=== PATIENT | female | born 1980 ===

== ENCOUNTER → 2020-06-15 | Outpatient (CLI) | payer OTHER ==
--- NOTE | 2020-06-15 12:46 | Diagnostic Imaging Report ---
Indication: Routine screening. No prior mammograms are available for comparison. This a baseline study. 2-D and 3-D bilateral screening mammography was performed with CAD. Both breasts are heterogeneously dense, limiting the sensitivity of mammography. No mass or malignant appearing microcalcifications are seen. Axillae are unremarkable. IMPRESSION: BI-RADS Category 1 No mammographic features suspicious for malignancy are identified. ACR BI-RADS Category 1: Negative. Result letter will be mailed to the patient. Note: At least 10% of breast cancer is not imaged by mammography. Dictated by: Dictated on workstation # [id number]
== END ==
LOC: RAD 10:45
PROVIDERS: ATTEND Nurse Practitioner
DX: Z12.31 Encounter for screening mammogram for malignant neoplasm of breast (principal)
CPT/HCPCS: 77063; 77067

== ENCOUNTER 2020-12-12 10:40 | Emergency (ER) | payer SELFPAY ==
[~2020-12-12] VITALS: Ht 170 cm; Wt 65.7 kg
[2020-12-12 11:33] LABS: BASOPHILS % (AUTO) 0 % (0-10); EOSINOPHILS % (AUTO) 0 % (0-10); HEMATOCRIT 22 % (35-52); LYMPHOCYTES # (AUTO) 1.2 10^3/uL (1.0-4.0); LYMPHOCYTES % (AUTO) 11 % (12-44); MEAN CORPUSCULAR HEMOGLOBIN 30 pg (25-34); MEAN CORPUSCULAR HGB CONC 32 g/dL (32-36); MEAN CORPUSCULAR VOLUME 94 fL (80-99); MEAN PLATELET VOLUME 10.3 fL (9.0-12.2); MONOCYTES # (AUTO) 0.4 10^3/uL (0.0-1.0); MONOCYTES % (AUTO) 4 % (0-12); NEUTROPHILS # (AUTO) 9.4 10^3/uL (1.8-7.8); NEUTROPHILS % (AUTO) 84 % (42-75); PLATELET COUNT 221 10^3/uL (130-400); WHITE BLOOD COUNT 11.2 10^3/uL (4.3-11.0)
[2020-12-12 11:37] LABS: HEMOGLOBIN 6.9 g/dL (11.5-16.0)
[2020-12-12 11:41] LABS: ALBUMIN 3.8 GM/DL (3.2-4.5); CHLORIDE 108 MMOL/L (98-107); POTASSIUM 3.5 MMOL/L (3.6-5.0); SODIUM 140 MMOL/L (135-145)
[2020-12-12 11:42] LABS: CALCIUM 8.2 MG/DL (8.5-10.1)
[2020-12-12 11:43] LABS: GLUCOSE 127 MG/DL (70-105); TOTAL PROTEIN 6.5 GM/DL (6.4-8.2)
[2020-12-12 11:45] LABS: BILIRUBIN,TOTAL 0.4 MG/DL (0.1-1.0); CARBON DIOXIDE 24 MMOL/L (21-32)
[2020-12-12 11:47] LABS: ALKALINE PHOSPHATASE 60 U/L (40-136); CREATININE SERUM 0.73 MG/DL (0.60-1.30); GFR ESTIMATED > 60
[2020-12-12 11:48] LABS: BUN/CREATININE RATIO 19
[2020-12-12 11:50] LABS: ALANINE AMINOTRANSFERASE 19 U/L (0-55)
[2020-12-12] MEDS ORDERED: NS IV 500 ML 500 ML IV SCH (13:15)
[2020-12-12 13:52] VITALS: BP 113/70
[2020-12-12 14:00] VITALS: BP 114/73
[2020-12-12 14:05] VITALS: BP 114/71
--- NOTE | 2020-12-12 14:55 | ED General ---
General Chief Complaint: General Problems/Pain Stated Complaint: JACKSON,ABD NORMAL LABS Nursing Triage Note: PT REFERRED TO ED FROM LOCAL CLINIC SEEN FOR DIZZYNESS. CLINIC REFERRED PT TO ED FOR LOW HEMOGLOBIN LEVELS. PT REPORTS DARK STOOLS AND HEADACHE FOR THE LAST THREE DAYS. Source of Information: Patient, Business Administration Professor Exam Limitations: Language Barrier History of Present Illness Date Seen by Provider: Dec 12, 2020 Time Seen by Provider: 11:00 Initial Comments Patient is a 40-year-old female who presents to the emergency room at the direction of [facility] with a chief complaint of anemia. Patient has been dizzy, having some nausea and a mild to moderate headache over the last 2 to 3 days. Patient examination is limited by language barrier, site interpreter line is used to facilitate history taking. Patient states that she has had some black stools over the last 3 or 4 days. She has had mild headache and fatigue. She is nauseated. She denies 6 discrete abdominal pain. Last menstrual cycle was 24 November. Patient denies diarrhea, urinary complaints. No recent fevers, chills, cough or congestion. No Covid complaints. She has taken some aspirin for her headache yesterday. Just 1 dose. She denies any other zmbl-amw-fgzkecx medications. She is not on control. All other review of systems reviewed and negative except as stated above. Timing/Duration: 2-3 Days Severity: Moderate Associated Systoms: Headaches, Nausea/Vomiting Allergies and Home Medications Allergies Coded Allergies: No Known Drug Allergies (Unverified , 12/12/20) Home Medications Ondansetron 4 Mg Tab.rapdis, 4 MG PO Q8H PRN for nausea Prescribed by: KRAIG LEIVA on 12/12/20 1542 Patient Home Medication List Home Medication List Reviewed: Yes Review of Systems Review of Systems Constitutional: see HPI, malaise EENTM: no symptoms reported Respiratory: no symptoms reported Cardiovascular: no symptoms reported Gastrointestinal: nausea Genitourinary: no symptoms reported Skin: no symptoms reported Psychiatric/Neurological: Headache, Other (dizziness) All Other Systems Reviewed Negative Unless Noted: Yes Past Vwcxopx-Nmtqgw-Bazvja Hx Patient Social History Tobacco Use?: No Substance use?: No Alcohol Use?: No Past Medical History Last Menstrual Period: Nov 24, 2020 Physical Exam Vital Signs Vital Signs - First Documented 12/12/20 11:04 Temp 36.4 Pulse 85 Resp 18 B/P (MAP) 130/82 (98) Pulse Ox 100 O2 Delivery Room Air Capillary Refill : Less Than 3 Seconds Height, Weight, BMI Height: '" Weight: lbs. oz. kg; 22.00 BMI Method: General Appearance: No Apparent Distress, WD/WN Eyes: Bilateral Eye Normal Inspection, Bilateral Eye Conjunctivae Pale HEENT: PERRL/EOMI Neck: Full Range of Motion, Supple Respiratory: Lungs Clear, Normal Breath Sounds, No Accessory Muscle Use, No Respiratory Distress Cardiovascular: Regular Rate, Rhythm Gastrointestinal: Non Tender, Soft Rectal: Normal Exam, Normal Rectal Tone, Heme Negative Stool Extremity: Normal Capillary Refill, Normal Inspection, Normal Range of Motion, Non Tender, No Calf Tenderness Neurologic/Psychiatric: Alert, Oriented x3, No Motor/Sensory Deficits, Normal Mood/Affect, ad operations specialist II-XII Norm as Tested Skin: Warm/Dry, Pallor Progress/Results/Core Measures Suspected Sepsis SIRS Temperature: Pulse: 78 Respiratory Rate: 19 Laboratory Tests 12/12/20 11:25: White Blood Count 11.2H Blood Pressure 114 /71 Mean: 85 Laboratory Tests 12/12/20 11:25: Creatinine 0.73, Platelet Count 221, Total Bilirubin 0.4 Results/Orders Lab Results Laboratory Tests Test 12/12/20 11:25 12/13/20 08:38 Range/Units White Blood Count 11.2 H 4.3-11.0 10^3/uL Red Blood Count 2.30 L 3.80-5.11 10^6/uL Hemoglobin 6.9 *L 11.5-16.0 g/dL Hematocrit 22 L 35-52 % Mean Corpuscular Volume 94 80-99 fL Mean Corpuscular Hemoglobin 30 25-34 pg Mean Corpuscular Hemoglobin Concent 32 32-36 g/dL Red Cell Distribution Width 13.8 10.0-14.5 % Platelet Count 221 130-400 10^3/uL Mean Platelet Volume 10.3 9.0-12.2 fL Immature Granulocyte % (Auto) 1 % Neutrophils (%) (Auto) 84 H 42-75 % Lymphocytes (%) (Auto) 11 L 12-44 % Monocytes (%) (Auto) 4 0-12 % Eosinophils (%) (Auto) 0 0-10 % Basophils (%) (Auto) 0 0-10 % Neutrophils # (Auto) 9.4 H 1.8-7.8 10^3/uL Lymphocytes # (Auto) 1.2 1.0-4.0 10^3/uL Monocytes # (Auto) 0.4 0.0-1.0 10^3/uL Eosinophils # (Auto) 0.0 0.0-0.3 10^3/uL Basophils # (Auto) 0.0 0.0-0.1 10^3/uL Immature Granulocyte # (Auto) 0.1 0.0-0.1 10^3/uL Sodium Level 140 135-145 MMOL/L Potassium Level 3.5 L 3.6-5.0 MMOL/L Chloride Level 108 H 98-107 MMOL/L Carbon Dioxide Level 24 21-32 MMOL/L Anion Gap 8 5-14 MMOL/L Blood Urea Nitrogen 14 7-18 MG/DL Creatinine 0.73 0.60-1.30 MG/DL Estimat Glomerular Filtration Rate > 60 BUN/Creatinine Ratio 19 Glucose Level 127 H 70-105 MG/DL Calcium Level 8.2 L 8.5-10.1 MG/DL Corrected Calcium 8.4 L 8.5-10.1 MG/DL Total Bilirubin 0.4 0.1-1.0 MG/DL Aspartate Amino Transf (AST/SGOT) 18 5-34 U/L Alanine Aminotransferase (ALT/SGPT) 19 0-55 U/L Alkaline Phosphatase 60 40-136 U/L Total Protein 6.5 6.4-8.2 GM/DL Albumin 3.8 3.2-4.5 GM/DL Serum Test, Qualitative NEGATIVE NEGATIVE Lab Scanned Report Transfusion Reaction Form [id number] My Orders Orders - KRAIG LEIVA MD Ed Iv/Invasive Line Start (12/12/20 11:20) Cbc With Automated Diff (12/12/20 11:20) Comprehensive Metabolic Panel (12/12/20 11:20) Hcg,Qualitative Serum (12/12/20 11:20) Type And Screen (12/12/20 11:20) Vital Signs: Special (Order) (12/12/20 13:01) Consent-Obtain Consent For (12/12/20 13:01) Monitor S/S Transfusion Reacti (12/12/20 13:01) Ns Iv 500 Ml (Sodium Chloride 0.9%) (12/12/20 13:15) Red Cells Leukocytes Reduced (7/6/21 13:01) Ketorolac Injection (Toradol Injection) (12/12/20 15:10) Ketorolac Injection (Toradol Injection) (12/12/20 15:30) Medications Given in ED Vital Signs/I&O 12/12/20 12/12/20 12/12/20 12/12/20 11:04 13:52 14:00 14:05 Temp 36.4 36.4 36.3 36.6 Pulse 85 84 85 78 Resp 18 18 20 19 B/P (MAP) 130/82 (98) 113/70 114/73 114/71 Pulse Ox 100 100 98 100 O2 Delivery Room Air Room Air Room Air Room Air 12/12/20 15:51 Temp 36.6 Pulse 85 Resp 19 B/P (MAP) 111/72 (85) Pulse Ox 100 O2 Delivery Room Air 12/13/20 00:00 Intake Total 0 ml Balance 0 ml Capillary Refill : Less Than 3 Seconds Blood Pressure Mean: 85 Departure Impression Primary Impression: Anemia Qualified Codes: D64.9 - Anemia, unspecified Additional Impression: GI bleed Qualified Codes: K92.2 - Gastrointestinal hemorrhage, unspecified Disposition: 01 HOME, SELF-CARE Condition: Stable Departure-Patient Inst. Decision time for Depature: 14:51 Referrals: [facility] [place] Primary Care Physician LITA AGGARWAL MD Patient Instructions: Gastrointestinal Bleeding Add. Discharge Instructions: Call the surgeon's office today to schedule an appointment for this week. The surgeon is Dr Aggarwal. Take an over the counter iron supplement every day. Drink plenty of fluids to stay hydrated. Come back to the Emergency Department for any worsening symptoms or new emergent complaints. Llame al consultorio del cirujano skyla para programar dion devin para esta semana. El cirujano es el Dr. Aggarwal. [place] un suplemento de titus de venta deepa todos los mukherjee. [place] muchos lquidos para mantenerse hidratado. Regrese al Departamento de Emergencias si los sntomas empeoran o si surgen nuevas quejas. Scripts Ondansetron (Ondansetron Odt) 4 Mg Tab.rapdis 4 MG PO Q8H PRN for nausea, #20 TAB Prov: KRAIG LEIVA MD 12/12/20 KRAIG LEIVA MD Dec 12, 2020 14:55
[2020-12-12] MEDS ORDERED: KETOROLAC 30 MG/ML VIAL ONE (15:10)
[2020-12-12] MEDS ORDERED: KETOROLAC 30 MG/ML VIAL IVP ONE (15:30)
[2020-12-12] MEDS ORDERED: ONDA4TAB11 PO (15:42)
[2020-12-12 15:51] VITALS: BP 111/72
== END 2020-12-12 15:54 | disposition home or self-care (01) ==
LOC: EDUNIT# 10:40 → ER 10:42
DX: D64.9 Anemia, unspecified (principal); K92.2 Gastrointestinal hemorrhage, unspecified
CPT/HCPCS: 80053; 84703; 85025; 86850; 86900; 86901; 86920; 99284; P9016; 36415

== ENCOUNTER 2020-12-20 05:32 | Outpatient (RCR) | payer SELFPAY ==
[~2020-12-20] VITALS: Ht 167.6 cm; Wt 67.6 kg
[~2020-12-20 05:32] MED LIST changes: -PANT40TA2 PO
[2020-12-22] MEDS ORDERED: PANT40TA2 PO (11:12)
== END 2020-12-20 12:05 | disposition home or self-care (01) ==
LOC: PREOP 05:32
PROVIDERS: ATTEND Surgery
DX: Z01.818 Encounter for other preprocedural examination (principal)

== ENCOUNTER → 2020-12-20 | Outpatient (CLI) | payer SELFPAY ==
[~2020-12-20] MED LIST: ONDA4TAB11 PO; PANT40TA2 PO
== END ==
LOC: LABNPT 07:33
PROVIDERS: ATTEND Surgery
DX: Z20.822 Contact with and (suspected) exposure to COVID-19 (principal)
CPT/HCPCS: 87635

== ENCOUNTER 2020-12-22 10:44 | Day surgery (SDC) | payer SELFPAY ==
[~2020-12-22] VITALS: Ht 170.2 cm; Wt 67.6 kg
[2020-12-22] MEDS ORDERED: LACTATED RINGERS 1,000 ML IV STA (10:53)
[2020-12-22] MEDS ORDERED: LACTATED RINGERS 1,000 ML IV ONE (11:00)
[2020-12-22] MEDS ORDERED: LIDOCAINE JELLY 2% 6 ML SYRINGE MM PRN (11:00)
[2020-12-22] MEDS ORDERED: HURRICAINE EXT TUBE (BENZOCAINE) XX PRN (11:00)
[2020-12-22 11:10] VITALS: BP 140/82
--- NOTE | 2020-12-22 11:10 | Conscious Sedation/ASA ---
Conscious Sedation Pre-Proced Time 11:00 ASA Score 2 For ASA 3 and 4: Consider anesthesia and medical clearance. Also, for patients with a history of failed moderate sedation consider anesthesia. Airway Lungs Heart ASA score ASA 1: a normal healthy patient ASA 2: a patient with a mild systemic disease (mid diabetes, controlled hypertension, obesity ASA 3: a patient with a severe systemic disease that limits activity (angina, COPD, prior Myocardial infarction) ASA 4: a patient with an incapacitating disease that is a constant threat to life (CHF, renal failure) ASA 5: a moribund patient not expected to survive 24 hrs. (ruptured aneurysm) ASA 6: a declared brain- patient whose organs are being harvested. For emergent operations, add the letter E after the classification Mallampati Classification Grade 2 Sedation Plan Analgesia, Amnesia, Plan communicated to team members, Discussed options with patient/fam, Discussed risks with patient/fam The patient is an appropriate candidate to undergo the planned procedure, sedation, and anesthesia. The patient immediately re-assessed prior to indication. LITA HARRIS MD Dec 22, 2020 11:10
--- NOTE | 2020-12-22 11:11 | Progress Note-Pre Operative ---
Pre-Operative Progress Note H&P Reviewed The H&P was reviewed, patient examined and no changes noted. Date Seen by Provider: Dec 22, 2020 Time Seen by Provider: 11:00 Date H&P Reviewed: Dec 22, 2020 Time H&P Reviewed: 11:00 Pre-Operative Diagnosis: GERD, rectal bleed LITA HARRIS MD Dec 22, 2020 11:11
[2020-12-22] MEDS ORDERED: PANT40TA2 PO (11:12)
--- NOTE | 2020-12-22 11:12 | Discharge Inst-Surgical ---
D/C Lap Instructions-KIDO New, Converted, or Re-Newed RX: RX on Chart Follow Up Appt in 2 weeks Activity as tolerated High Fiber Diet 25g or more per day Avoid Alcohol, Caffeine, Spicy [place] and Acid foods. Drink 64 fluid oz or more of fluids per day. Symptoms to Report: Fever over 101 degree F, Nausea/Vomiting If any problems/questions: Contact your physician or go to Emergency Room LITA HARRIS MD Dec 22, 2020 11:12
[2020-12-22] MEDS ORDERED: ACETAMINOPHEN 325 MG TABLET PO PRN (11:15)
[2020-12-22] MEDS ORDERED: HYDROcodone/APAP 5 MG/325 MG (LORTAB) TAB PO PRN (11:15)
[2020-12-22] MEDS ORDERED: morphine INJ 10 MG/ML 1ML (SYR OR VIAL) IVP PRN ×2 (11:15)
[2020-12-22] MEDS ORDERED: ONDANSETRON 4 MG (ZOFRAN) ORAL DISSOLVE TAB PO PRN (11:15)
[2020-12-22] MEDS ORDERED: MIDAZOLAM 2 MG/2 ML (VERSED) VIAL ONE (11:44)
[2020-12-22] MEDS ORDERED: PROPOFOL INJECTION 50 ML IV ONE (11:44)
[2020-12-22 12:15] VITALS: BP 96/58
[2020-12-22 12:20] VITALS: BP 103/59
[2020-12-22 12:25] VITALS: BP_SYST 101; BP_SYST 116; BP_DIAS 62; BP_DIAS 64
[2020-12-22 12:55] VITALS: BP 116/72
[2020-12-22 13:03] VITALS: BP 116/72
--- NOTE | 2020-12-22 13:49 | Anesthesia-General Post-Op ---
MAC Patient Condition Mental Status/LOC: Same as Preop Cardiovascular: Satisfactory Nausea/Vomiting: Absent Respiratory: Satisfactory Pain: Controlled Complications: Absent Post Op Complications Complications None Follow Up Care/Instructions Patient Instructions None needed. Anesthesiology Discharge Order Discharge Order Patient is doing well, no complaints, stable vital signs, no apparent adverse anesthesia problems. No complications reported per nursing. THOMAS LUDWIG CRNA Dec 22, 2020 13:49
--- NOTE | 2020-12-22 16:55 | OPERATIVE REPORT ---
DATE OF SERVICE: 12/22/2020 ATTENDING PRIMARY BARK SPUDDER: [facility]. PREOPERATIVE DIAGNOSES: Anemia and rectal bleeding. POSTOPERATIVE DIAGNOSES: Reflux esophagitis stage II, no hiatal hernia, moderate severity gastritis with a gastric ulcer along the body of the greater curvature of the stomach with an overlying fibrin clot. No active bleeding. Mild chronic stage II external and internal hemorrhoids. PROCEDURES PERFORMED: EGD with biopsy and colonoscopy. SURGEON: Lita Harris MD. ANESTHESIA: Monitored anesthesia care. ESTIMATED BLOOD LOSS: Minimal. FINDINGS: Reflux esophagitis stage II, no hiatal hernia, moderate severity gastritis with a gastric ulcer along the body of the greater curvature of the stomach with an overlying fibrin clot. No active bleeding. Mild chronic stage II external and internal hemorrhoids. DISPOSITION: The patient tolerated the procedure well. INDICATIONS FOR PROCEDURE: The patient is a 40-year-old female, who was referred over to us from [facility] for multiple gastrointestinal symptoms. The patient is Irish speaking and does not speak Algerian; however, her son-in-law was present at the office visit for interpretation. She reports that she was found to be anemic in her home country; however, states that she does eat healthy and does exercise. She does report that she has had some dark blood per rectum on an intermittent basis. Her hemoglobin was found to be 6.9 with a hematocrit of 22. DESCRIPTION OF PROCEDURE: The patient was brought to the endoscopy suite and laid in the left lateral decubitus position. After adequate IV pain and sedative medications and monitored anesthesia care, the mouthpiece was applied. The endoscope was placed in the mouth, visualized the pharynx and hypopharyngeal region. Vocal cords, epiglottis and vallecula identified and appeared to be normal. The endoscope was then gently intubated, esophageal opening and esophagus insufflated. The endoscope was then advanced through the first, second and third portion of the esophagus. At the level of the GE junction, a reflux esophagitis stage II identified. There were no ulcers or strictures identified in this region. A biopsy was taken with forceps with visualization of good hemostasis. The endoscope was then advanced in the stomach and the endoscope retroflexed visualizing no significant hiatal hernia. A gastric ulcer along the body of the greater curvature of the stomach was identified with an overlying fibrin clot identified. This was biopsied at the edge with forceps with visualization of good hemostasis. A moderate gastritis was noted and a biopsy was taken of the antrum to rule out H. pylori. The endoscope was then advanced to the pylorus and the first and second portion of the duodenum, which appeared normal with no ulcerations or any active bleeding sources. The endoscope was then slowly withdrawn while taking a second look and suctioning of residual air with no additional findings. A digital rectal examination was performed, which revealed chronic stage II external and internal hemorrhoids, not actively edematous nor inflamed and no bleeding. Normal sphincter tone was felt and there were no palpable masses. The endoscope was then intubated and the rectum gently insufflated. The endoscope was then advanced to the valves of Andrade of the rectum with no polyps or any neoplasms identified. Through the sigmoid colon, no diverticulosis was identified. The endoscope was then advanced to the mid of the descending, transverse and ascending colon to the cecum. These segments were normal. There were no polyps or any neoplasms identified as well as no active bleeding sources identified. The endoscope was then slowly withdrawn while taking a second look and suctioning of residual air with no additional findings. The patient tolerated the procedure well. We will start her on Protonix 40 mg daily; however, we will await the biopsy results. She does have a high probability of Helicobacter pylori infection and if this is the case, we will start her on the adequate antibiotic therapy. Job ID: [id number] DocumentID: [id number] Dictated Date: 12/22/2020 12:28:58 Academic Dean Date: 12/22/2020 16:53:42 Dictated By: LITA HARRIS MD
== END 2020-12-22 13:03 | disposition home or self-care (01) ==
LOC: ENDO 10:44
PROVIDERS: ATTEND Surgery
DX: K29.50 Unspecified chronic gastritis without bleeding (principal); B96.81 Helicobacter pylori [H. pylori] as the cause of diseases classified elsewhere; C16.9 Malignant neoplasm of stomach, unspecified; D64.9 Anemia, unspecified; K21.00 Gastro-esophageal reflux disease with esophagitis, without bleeding; K64.1 Second degree hemorrhoids; K62.5 Hemorrhage of anus and rectum
CPT/HCPCS: 84703; 88305; 88341; 88342

== ENCOUNTER → 2021-01-16 | Outpatient (CLI) | payer SELFPAY ==
[~2021-01-16] MED LIST changes: +PANT40TA2 PO
--- NOTE | 2021-01-16 16:30 | Diagnostic Imaging Report ---
INDICATION: Malignant neoplasm of the stomach, initial staging. TECHNIQUE: Serum blood glucose level at the time of injection is 105 mg/dL. Patient was administered 13.9 mCi F-18 FDG intravenously in the left antecubital location and PET imaging was performed from the top of the skull through mid thighs. Noncontrast CT was performed for attenuation correction and anatomic correlation. COMPARISON: No prior imaging is available for comparison. FINDINGS: There is symmetric activity throughout the brain. Physiologic activity within the soft tissues of the neck is noted. No mediastinal or hilar hypermetabolism is identified. No pulmonary parenchymal hypermetabolism is identified. There is physiologic activity throughout the GI and tracts of the abdomen and pelvis. There is some activity in the stomach which may correlate with the patient's known gastric neoplasm. No definite hypermetabolic lymphadenopathy is detected. IMPRESSION: Essentially unremarkable PET/CT study apart from some mild uptake in the stomach which could be patient's known primary gastric neoplasm. No definite hypermetabolic lymphadenopathy is detected. Dictated by: Dictated on workstation # [id number]
== END ==
LOC: RAD 12:45
PROVIDERS: ATTEND Internal Medicine Hematology & Oncology
DX: C16.9 Malignant neoplasm of stomach, unspecified (principal)
CPT/HCPCS: 78815; A9552

== ENCOUNTER 2021-02-21 05:32 | Outpatient (RCR) | payer SELFPAY ==
[~2021-02-21] VITALS: Ht 167.6 cm; Wt 67.6 kg
== END 2021-02-21 08:57 | disposition home or self-care (01) ==
LOC: PREOP 05:32
PROVIDERS: ATTEND Surgery
DX: Z01.818 Encounter for other preprocedural examination (principal); Z85.028 Personal history of other malignant neoplasm of stomach; Z20.822 Contact with and (suspected) exposure to COVID-19
CPT/HCPCS: 87635

== ENCOUNTER 2021-02-23 11:01 | Day surgery (SDC) | payer SELFPAY ==
--- NOTE | 2021-02-16 06:38 | HISTORY AND PHYSICAL ---
DATE OF SERVICE: DATE OF ADMISSION: 02/23/2021. HISTORY OF PRESENT ILLNESS: The patient is a 40-year-old, female from [place]. She is Iranian speaking; however, she does have a son-in-law that does interpret for her. She was found to be anemic in her home country and states that she does eat healthy and does exercise. She also reported noticing dark colored stools on an intermittent basis. Her hemoglobin was found to be 6.9 with hematocrit of 22. On 12/22/2020, she underwent an EGD and colonoscopy. She was found to have a reflux esophagitis stage II, a moderate severity gastritis and a gastric ulcer along the body of the greater curvature of the stomach with an overlying fibrin clot and no active bleeding. Biopsies of the stomach and the ulcer were numerous for H. pylori, but the ulcer also did show a poorly differentiated gastric adenocarcinoma. She was referred to oncology, where she was started and finished the treatment for Helicobacter pylori. She also underwent further workup including a PET scan, which only lit up a small area, which appeared to be a nonfull thickness of the stomach and likely consistent with a stage 1 tumor. There were no lymph nodes that were positive. Oncology would like a followup EGD and biopsies to reevaluate the ulcer to make sure that this has healed as well as to see if any biopsies have changed in terms of the adenocarcinoma. PAST MEDICAL HISTORY: Anemia and gastric adenocarcinoma. PAST SURGICAL HISTORY: None. ALLERGIES: No known drug allergies. MEDICATIONS: None. SOCIAL HISTORY: Negative smoke and negative alcohol. FAMILY HISTORY: Noncontributory. REVIEW OF SYSTEMS: A well-nourished female currently in no acute distress. She is not experiencing any shortness of breath or difficulty breathing. No chest pain, palpitations or diaphoresis. No nausea, vomiting. No hematemesis and no coffee ground emesis. No diarrhea, constipation, no red blood per rectum, and no dark tarry stools. No fever, chills, no recent inadvertent weight loss. All other review of systems negative. PHYSICAL EXAMINATION: VITAL SIGNS: Blood pressure 110/62. Current weight 149 pounds at 5 feet 6 inches and body mass index of 24.05. CHEST: Clear. Good breath sounds bilaterally. HEART: Regular, no murmurs. EXTREMITIES: No lower extremity edema and negative Homans sign. HEENT: No scleral icterus. NECK: No cervical lymphadenopathy. ABDOMEN: Soft, nontender, and nondistended. SKIN: Warm, dry. ASSESSMENT AND PLAN: A 40-year-old female with a small focus of gastric adenocarcinoma, which appears to be a stage I and a history of H. pylori infection. She has been treated for H. pylori infection and will require a followup EGD to evaluate healing of the gastric ulcer as well as to confirm eradication of H. pylori and we will schedule her for an EGD on 02/23 of this year. Job ID: [id number] DocumentID: [id number] Dictated Date: 01/23/2021 17:35:24 Finishing Area Supervisor Date: 01/23/2021 18:05:37 Dictated By: LITA HARRIS MD
[~2021-02-23] VITALS: Ht 167.6 cm; Wt 67.6 kg
[2021-02-23] MEDS ORDERED: LACTATED RINGERS 1,000 ML IV ONE (11:08)
[2021-02-23] MEDS ORDERED: HURRICAINE EXT TUBE (BENZOCAINE) XX PRN (11:15)
[2021-02-23] MEDS ORDERED: LIDOCAINE JELLY 2% 6 ML SYRINGE MM PRN (11:15)
[2021-02-23] MEDS ORDERED: LACTATED RINGERS 1,000 ML IV STA (11:15)
[2021-02-23 11:40] VITALS: BP 140/81
--- NOTE | 2021-02-23 12:27 | Progress Note-Pre Operative ---
Pre-Operative Progress Note H&P Reviewed The H&P was reviewed, patient examined and no changes noted. Date Seen by Provider: Feb 23, 2021 Time Seen by Provider: 12:00 Date H&P Reviewed: Feb 23, 2021 Time H&P Reviewed: 12:00 Pre-Operative Diagnosis: gastric ca LITA HARRIS MD Feb 23, 2021 12:27
--- NOTE | 2021-02-23 12:28 | Discharge Inst-Surgical ---
D/C Lap Instructions-KIMBERLY Follow Up Activity as tolerated High Fiber Diet 25g or more per day Avoid Alcohol, Caffeine, Spicy Start and Acid foods. Drink 64 fluid oz or more of fluids per day. Symptoms to Report: Fever over 101 degree F, Nausea/Vomiting If any problems/questions: Contact your physician or go to Emergency Room LITA HARRIS MD Feb 23, 2021 12:28
[2021-02-23] MEDS ORDERED: ONDANSETRON 4 MG/2 ML (SDV) Z0FRAN IVP PRN (12:30)
[2021-02-23] MEDS ORDERED: ONDANSETRON 4 MG (ZOFRAN) ORAL DISSOLVE TAB PO PRN (12:30)
[2021-02-23] MEDS ORDERED: MIDAZOLAM 2 MG/2 ML (VERSED) VIAL ONE (12:33)
[2021-02-23] MEDS ORDERED: proPOfol 200 MG/20 ML (DIPRIVAN) VIAL IV ONE (12:33)
[2021-02-23 12:55] VITALS: BP 116/68
[2021-02-23 13:00] VITALS: BP 117/71
[2021-02-23 13:05] VITALS: BP 114/70
[2021-02-23 13:25] VITALS: BP 119/81
[2021-02-23 13:31] VITALS: BP 119/81
--- NOTE | 2021-02-23 14:15 | Anesthesia-General Post-Op ---
MAC Patient Condition Mental Status/LOC: Same as Preop Cardiovascular: Satisfactory Nausea/Vomiting: Absent Respiratory: Satisfactory Pain: Controlled Complications: Absent Post Op Complications Complications None Follow Up Care/Instructions Patient Instructions None needed. Anesthesiology Discharge Order Discharge Order Patient is doing well, no complaints, stable vital signs, no apparent adverse anesthesia problems. No complications reported per nursing. TIANA GREY CRNA Feb 23, 2021 14:15
--- NOTE | 2021-02-23 15:47 | OPERATIVE REPORT ---
DATE OF SERVICE: 02/23/2021 PREOPERATIVE DIAGNOSES: Adenocarcinoma of the greater curvature of the stomach as well as H. pylori. POSTOPERATIVE DIAGNOSES: Healed gastric ulcer, reflux esophagitis stage II, mild gastritis. PROCEDURE: EGD with biopsy. SURGEON: Lita Harris MD ANESTHESIA: Monitored anesthesia care. ESTIMATED BLOOD LOSS: Minimal. FINDINGS: Same as postoperative diagnoses. DISPOSITION: The patient tolerated the procedure well. INDICATIONS: The patient is a 40-year-old female from [facility]. She is Romanian speaking; however, she does have son-in-law that did interpret Khmer. She was found to be anemic in her home country and states that she was otherwise felt healthy, ate healthy and exercises regularly. She reported noticing dark colored stools on an intermittent basis. Her hemoglobin was found to be 6.9 and hematocrit of 22. On 12/22/2020, she underwent an EGD and colonoscopy, found to have a reflux esophagitis stage II, moderate severity gastritis as well as a gastric ulcer along the body of the greater curvature of the stomach with an overlying fibrin clot, no active bleeding. Biopsies were positive for H. pylori and the ulcer biopsy did show adenocarcinoma, poorly differentiated adenocarcinoma. She then underwent further workup with a PET scan and only a small area of the stomach appeared to light up with no full thickness of the stomach consistent with a stage I tumor. DESCRIPTION OF PROCEDURE: The patient was brought to the endoscopy suite, laid in the left lateral decubitus position. After adequate IV pain and sedative medications and monitored anesthesia care, the mouthpiece was applied. The endoscope was then placed in the mouth, visualizing the pharynx and hypopharyngeal region. Vocal cords, epiglottis and vallecula identified and appeared to be normal. The endoscope was then gently intubated. Esophageal opening and esophagus insufflated. The endoscope was then advanced through the first, second and third portion of esophagus at the level of GE junction, reflux esophagitis stage II identified. The previous ulcer appeared to be well healed with indented mucosa; however, there was no visible tumor nor inflammation identified. Multiple biopsies were taken of the previous ulcer site with visualization of good hemostasis. A biopsy was taken of the antrum to confirm eradication of H. pylori. Endoscope was then advanced through the pylorus and the first and second portion of the duodenum, which appeared normal with no distal obstructions. The endoscope was then slowly withdrawn while taking a second look and suctioning of residual air with no additional findings. The patient tolerated the procedure well. We will await the biopsy results in hopes of eradication of H. pylori as well as await the results of the biopsies of the previously identified area of adenocarcinoma. This lesion appears to not be amenable to endoscopic resection, for which we would refer to an endoscopic specialist. Job ID: [id number] DocumentID: [id number] Dictated Date: 02/23/2021 13:01:49 Single Corner Cutter Date: 02/23/2021 15:47:20 Dictated By: LITA HARRIS MD
--- NOTE | 2021-02-23 18:01 | Progress Note-Post Operative ---
Post-Operative Progess Note Surgeon (s)/Skin Carver (s) Surgeon LITA HARRIS MD Skin Carver: none Pre-Operative Diagnosis gastric ca Post-Operative Diagnosis healed previous greater curvature ulcer, no masses, mild gastritis. Procedure & Operative Findings Date of Procedure 02/23/21 Procedure Performed/Findings EGD with bx. Anesthesia Type mac Estimated Blood Loss Estimated blood loss (mL): minimal Specimens/Packing Specimens Removed gastric ulcer/adenocarcinoma, antrum LITA HARRIS MD Feb 23, 2021 18:01
== END 2021-02-23 14:00 | disposition home or self-care (01) ==
LOC: ENDO 11:01
PROVIDERS: ATTEND Surgery
DX: K21.00 Gastro-esophageal reflux disease with esophagitis, without bleeding (principal); K29.50 Unspecified chronic gastritis without bleeding; C16.6 Malignant neoplasm of greater curvature of stomach, unspecified; D63.0 Anemia in neoplastic disease; Z79.899 Other long term (current) drug therapy
CPT/HCPCS: 84703

== ENCOUNTER 2021-03-29 13:30 | Outpatient (RCR) | payer SELFPAY | END 2021-04-12 | disposition home or self-care (01) | LOC: ONC 13:30 | PROVIDERS: ATTEND Internal Medicine Hematology & Oncology | DX: C16.9 Malignant neoplasm of stomach, unspecified (principal); B96.81 Helicobacter pylori [H. pylori] as the cause of diseases classified elsewhere; D50.0 Iron deficiency anemia secondary to blood loss (chronic) | CPT/HCPCS: 99213; 99214 ==

== ENCOUNTER → 2021-04-16 | Outpatient (CLI) | payer OTHER ==
[~2021-04-16] MED LIST changes: +CATHETER FLUSH 10 ML SYR IV PRN; +HOLD METFORMIN - RECEIVED CONTRAST 20 ML VIAL IV SCH; +IOHEXOL 350 MG/ML 100 ML (OMNIPAQUE 350) VIAL IV ONE; +NS 100 ML (IVPB) BAG IV ONE
--- NOTE | 2021-04-16 13:14 | Diagnostic Imaging Report ---
PROCEDURE: CT chest, abdomen, and pelvis with contrast. TECHNIQUE: Multiple contiguous axial images were obtained through the chest, abdomen, and pelvis after the administration of intravenous contrast. Auto Exposure Controls were utilized during the CT exam to meet ALARA standards for radiation dose reduction. INDICATION: Gastric cancer, initial staging. No prior CT studies are available for comparison. CT CHEST: No axillary lymphadenopathy is detected. No mediastinal or hilar lymphadenopathy is detected. No pulmonary infiltrates, nodules or masses are detected. CT ABDOMEN AND PELVIS: No discrete liver mass is identified. Gallbladder is unremarkable. No biliary duct dilatation is seen. The pancreas and spleen are unremarkable. Stomach is decompressed. No adrenal mass is identified. There appears to be some cortical scarring right kidney. No calculi or hydronephrosis is detected. Aorta is nonaneurysmal. No central retroperitoneal or mesenteric lymphadenopathy is detected. The small and large bowel loops are normal caliber. There is no ascites. Bladder is unremarkable. Uterus is unremarkable. No pelvic lymphadenopathy is detected. Bony structures are nonacute. IMPRESSION: Unremarkable CT of the chest, abdomen and pelvis. No lymphadenopathy or evidence of metastatic disease is detected. Dictated by: Dictated on workstation # [id number]
== END ==
LOC: RAD 12:15
DX: C16.9 Malignant neoplasm of stomach, unspecified (principal)
CPT/HCPCS: 71260; 74177

== ENCOUNTER 2021-05-10 14:55 | Outpatient (RCR) | payer SELFPAY ==
[~2021-05-10 14:55] MED LIST changes: -CATHETER FLUSH 10 ML SYR IV PRN; -HOLD METFORMIN - RECEIVED CONTRAST 20 ML VIAL IV SCH; -IOHEXOL 350 MG/ML 100 ML (OMNIPAQUE 350) VIAL IV ONE; -NS 100 ML (IVPB) BAG IV ONE
== END 2021-06-08 | disposition home or self-care (01) ==
LOC: ONC 14:55
PROVIDERS: ATTEND Internal Medicine Hematology & Oncology
DX: C16.9 Malignant neoplasm of stomach, unspecified (principal); B96.81 Helicobacter pylori [H. pylori] as the cause of diseases classified elsewhere; D50.0 Iron deficiency anemia secondary to blood loss (chronic)

== ENCOUNTER 2021-06-14 14:29 | Outpatient (RCR) | payer OTHER ==
[2021-06-12 14:14] LABS: BASOPHILS % (AUTO) 1 % (0-10); EOSINOPHILS # (AUTO) 0.1 10^3/uL (0.0-0.3); EOSINOPHILS % (AUTO) 2 % (0-10); HEMATOCRIT 32 % (35-52); HEMOGLOBIN 9.8 g/dL (11.5-16.0); LYMPHOCYTES # (AUTO) 1.7 10^3/uL (1.0-4.0); LYMPHOCYTES % (AUTO) 38 % (12-44); MEAN CORPUSCULAR HEMOGLOBIN 22 pg (25-34); MEAN CORPUSCULAR HGB CONC 30 g/dL (32-36); MEAN CORPUSCULAR VOLUME 73 fL (80-99); MONOCYTES # (AUTO) 0.4 10^3/uL (0.0-1.0); MONOCYTES % (AUTO) 10 % (0-12); NEUTROPHILS # (AUTO) 2.1 10^3/uL (1.8-7.8); NEUTROPHILS % (AUTO) 49 % (42-75); PLATELET COUNT 163 10^3/uL (130-400); WHITE BLOOD COUNT 4.4 10^3/uL (4.3-11.0)
[2021-06-12 14:37] LABS: ALBUMIN 3.9 GM/DL (3.2-4.5); BILIRUBIN,TOTAL 0.5 MG/DL (0.1-1.0); CALCIUM 8.8 MG/DL (8.5-10.1); CREATININE SERUM 0.62 MG/DL (0.60-1.30); POTASSIUM 3.6 MMOL/L (3.6-5.0); TOTAL PROTEIN 6.9 GM/DL (6.4-8.2)
[~2021-06-14] VITALS: Ht 167.6 cm; Wt 57.6 kg
[2021-06-15] MEDS ORDERED: D5W IV SCH (09:30)
[2021-06-15] MEDS ORDERED: NS IV 1000 ML (CANCER CTR) IV SCH (09:30)
[2021-06-15] MEDS ORDERED: OXALIPLATIN IV SCH (09:30)
[2021-06-15] MEDS ORDERED: FOSAPREPITANT (CANCER CENTER) 150 MG in NS (IVPB) CANCER CENTER ONLY 150 ML IV SCH (09:30)
== END 2021-07-09 | disposition home or self-care (01) ==
LOC: ONC 14:29
PROVIDERS: ATTEND Internal Medicine Hematology & Oncology
DX: C16.9 Malignant neoplasm of stomach, unspecified (principal); B96.81 Helicobacter pylori [H. pylori] as the cause of diseases classified elsewhere; D50.0 Iron deficiency anemia secondary to blood loss (chronic); K22.70 Barrett's esophagus without dysplasia; Z98.890 Other specified postprocedural states
CPT/HCPCS: 80053; 85025; G0463; 36591; 82728; 83540; 83550; 99213

== ENCOUNTER 2021-07-19 13:17 | Outpatient (RCR) | payer OTHER ==
[~2021-07-19] VITALS: Ht 167.6 cm; Wt 57.6 kg
[~2021-07-19 13:17] MED LIST changes: +D5W 500 ML IV (CANCER CTR) 500 ML IV SCH; +D5W IV SCH; +FOSAPREPITANT (CANCER CENTER) 150 MG in NS (IVPB) CANCER CENTER ONLY 150 ML IV SCH; +OXALIPLATIN IV SCH
[2021-07-19 14:58] LABS: BASOPHILS % (AUTO) 1 % (0-10); EOSINOPHILS # (AUTO) 0.1 10^3/uL (0.0-0.3); EOSINOPHILS % (AUTO) 2 % (0-10); HEMATOCRIT 28 % (35-52); HEMOGLOBIN 8.8 g/dL (11.5-16.0); LYMPHOCYTES # (AUTO) 1.7 X 10^3 (1.0-4.0); LYMPHOCYTES % (AUTO) 31 % (12-44); MEAN CORPUSCULAR HEMOGLOBIN 23 pg (25-34); MEAN CORPUSCULAR HGB CONC 31 g/dL (32-36); MEAN CORPUSCULAR VOLUME 73 fL (80-99); MEAN PLATELET VOLUME 10.6 fL (9.0-12.2); MONOCYTES # (AUTO) 0.5 X 10^3 (0.0-1.0); MONOCYTES % (AUTO) 9 % (0-12); NEUTROPHILS # (AUTO) 3.3 X 10^3 (1.8-7.8); NEUTROPHILS % (AUTO) 59 % (42-75); PLATELET COUNT 299 10^3/uL (130-400); WHITE BLOOD COUNT 5.6 10^3/uL (4.3-11.0)
[2021-07-19 15:17] LABS: ALBUMIN 3.9 GM/DL (3.2-4.5); BILIRUBIN,TOTAL 0.9 MG/DL (0.1-1.0); CALCIUM 8.8 MG/DL (8.5-10.1); CREATININE SERUM 0.64 MG/DL (0.60-1.30); MAGNESIUM 1.9 MG/DL (1.6-2.4); TOTAL PROTEIN 7.2 GM/DL (6.4-8.2)
== END 2021-08-06 | disposition home or self-care (01) ==
LOC: ONC 13:17
PROVIDERS: ATTEND Internal Medicine Hematology & Oncology
DX: Z51.11 Encounter for antineoplastic chemotherapy (principal); Z45.2 Encounter for adjustment and management of vascular access device; C16.9 Malignant neoplasm of stomach, unspecified; Z98.890 Other specified postprocedural states
CPT/HCPCS: 36591; 80053; 82378; 82728; 83540; 83550; 83735; 84703; 85025; 96375; 96413; 96415

== ENCOUNTER 2021-08-31 08:50 | Outpatient (RCR) | payer OTHER ==
[2021-08-10 09:10] LABS: BASOPHILS % (AUTO) 1 % (0-10); EOSINOPHILS # (AUTO) 0.1 10^3/uL (0.0-0.3); EOSINOPHILS % (AUTO) 3 % (0-10); HEMATOCRIT 33 % (35-52); HEMOGLOBIN 10.2 g/dL (11.5-16.0); LYMPHOCYTES # (AUTO) 1.1 10^3/uL (1.0-4.0); LYMPHOCYTES % (AUTO) 40 % (12-44); MEAN CORPUSCULAR HEMOGLOBIN 24 pg (25-34); MEAN CORPUSCULAR HGB CONC 31 g/dL (32-36); MEAN CORPUSCULAR VOLUME 77 fL (80-99); MEAN PLATELET VOLUME 10.4 fL (9.0-12.2); MONOCYTES # (AUTO) 0.5 10^3/uL (0.0-1.0); MONOCYTES % (AUTO) 16 % (0-12); NEUTROPHILS # (AUTO) 1.1 10^3/uL (1.8-7.8); NEUTROPHILS % (AUTO) 40 % (42-75); PLATELET COUNT 258 10^3/uL (130-400); WHITE BLOOD COUNT 2.8 10^3/uL (4.3-11.0)
[2021-08-10 09:27] LABS: ALBUMIN 4.2 GM/DL (3.2-4.5); CALCIUM 9.3 MG/DL (8.5-10.1); CREATININE SERUM 0.75 MG/DL (0.60-1.30); POTASSIUM 3.5 MMOL/L (3.6-5.0); TOTAL PROTEIN 7.4 GM/DL (6.4-8.2)
[2021-08-17 13:11] LABS: BASOPHILS % (AUTO) 0 % (0-10); EOSINOPHILS % (AUTO) 1 % (0-10); HEMATOCRIT 33 % (35-52); HEMOGLOBIN 10.3 g/dL (11.5-16.0); LYMPHOCYTES # (AUTO) 1.5 10^3/uL (1.0-4.0); LYMPHOCYTES % (AUTO) 27 % (12-44); MEAN CORPUSCULAR HEMOGLOBIN 24 pg (25-34); MEAN CORPUSCULAR HGB CONC 31 g/dL (32-36); MEAN CORPUSCULAR VOLUME 77 fL (80-99); MEAN PLATELET VOLUME 10.3 fL (9.0-12.2); MONOCYTES # (AUTO) 0.5 10^3/uL (0.0-1.0); MONOCYTES % (AUTO) 9 % (0-12); NEUTROPHILS # (AUTO) 3.5 10^3/uL (1.8-7.8); NEUTROPHILS % (AUTO) 63 % (42-75); PLATELET COUNT 202 10^3/uL (130-400); WHITE BLOOD COUNT 5.6 10^3/uL (4.3-11.0)
[2021-08-17 13:22] LABS: CALCIUM 9.1 MG/DL (8.5-10.1); CREATININE SERUM 0.74 MG/DL (0.60-1.30); POTASSIUM 3.9 MMOL/L (3.6-5.0)
[2021-08-24 14:17] LABS: BASOPHILS % (AUTO) 1 % (0-10); EOSINOPHILS # (AUTO) 0.1 10^3/uL (0.0-0.3); EOSINOPHILS % (AUTO) 1 % (0-10); HEMATOCRIT 29 % (35-52); HEMOGLOBIN 9.3 g/dL (11.5-16.0); LYMPHOCYTES # (AUTO) 1.5 10^3/uL (1.0-4.0); LYMPHOCYTES % (AUTO) 30 % (12-44); MEAN CORPUSCULAR HEMOGLOBIN 25 pg (25-34); MEAN CORPUSCULAR HGB CONC 32 g/dL (32-36); MEAN CORPUSCULAR VOLUME 78 fL (80-99); MEAN PLATELET VOLUME 10.5 fL (9.0-12.2); MONOCYTES # (AUTO) 0.4 10^3/uL (0.0-1.0); MONOCYTES % (AUTO) 8 % (0-12); NEUTROPHILS # (AUTO) 2.9 10^3/uL (1.8-7.8); NEUTROPHILS % (AUTO) 59 % (42-75); PLATELET COUNT 177 10^3/uL (130-400); WHITE BLOOD COUNT 4.9 10^3/uL (4.3-11.0)
[2021-08-24 14:32] LABS: CALCIUM 8.3 MG/DL (8.5-10.1); CREATININE SERUM 0.69 MG/DL (0.60-1.30); POTASSIUM 3.3 MMOL/L (3.6-5.0)
[~2021-08-31 08:50] MED LIST changes: +diphenhydrAMINE 25 MG TAB (BENADRYL) CANCER CENTER PO SCH
[2021-08-31 09:13] LABS: BASOPHILS % (AUTO) 1 % (0-10); EOSINOPHILS # (AUTO) 0.1 10^3/uL (0.0-0.3); EOSINOPHILS % (AUTO) 3 % (0-10); HEMATOCRIT 31 % (35-52); HEMOGLOBIN 10.1 g/dL (11.5-16.0); LYMPHOCYTES # (AUTO) 1.1 10^3/uL (1.0-4.0); LYMPHOCYTES % (AUTO) 35 % (12-44); MEAN CORPUSCULAR HEMOGLOBIN 26 pg (25-34); MEAN CORPUSCULAR HGB CONC 32 g/dL (32-36); MEAN CORPUSCULAR VOLUME 80 fL (80-99); MEAN PLATELET VOLUME 10.1 fL (9.0-12.2); MONOCYTES # (AUTO) 0.5 10^3/uL (0.0-1.0); MONOCYTES % (AUTO) 17 % (0-12); NEUTROPHILS # (AUTO) 1.4 10^3/uL (1.8-7.8); NEUTROPHILS % (AUTO) 45 % (42-75); PLATELET COUNT 219 10^3/uL (130-400); WHITE BLOOD COUNT 3.1 10^3/uL (4.3-11.0)
[2021-08-31] MEDS ORDERED: FAMOTIDINE 20MG/2ML IV (CANCER CTR) IV SCH (09:30)
[2021-08-31 09:35] LABS: ALBUMIN 4.1 GM/DL (3.2-4.5); BILIRUBIN,TOTAL 0.9 MG/DL (0.1-1.0); CREATININE SERUM 0.72 MG/DL (0.60-1.30); POTASSIUM 3.7 MMOL/L (3.6-5.0); TOTAL PROTEIN 7.1 GM/DL (6.4-8.2)
[2021-08-31] MEDS ORDERED: OXALIPLATIN 200 MG in D5W 250 ML IVPB (CANCER CTR) 250 ML IV SCH (10:45)
== END 2021-09-06 | disposition home or self-care (01) ==
LOC: ONC 08:50
PROVIDERS: ATTEND Internal Medicine Hematology & Oncology
DX: Z51.11 Encounter for antineoplastic chemotherapy (principal); Z45.2 Encounter for adjustment and management of vascular access device; C16.9 Malignant neoplasm of stomach, unspecified; D50.0 Iron deficiency anemia secondary to blood loss (chronic); K22.70 Barrett's esophagus without dysplasia; Z98.890 Other specified postprocedural states
CPT/HCPCS: 80053; 85025; 96360; 96375; 96413; 96415; G0463; 36415; 36591; 80048; 82728; 83540; 83550; 99213

== ENCOUNTER → 2021-09-07 | Outpatient (CLI) | payer OTHER ==
[~2021-09-07] MED LIST changes: +CATHETER FLUSH 10 ML SYR IV PRN; -D5W 500 ML IV (CANCER CTR) 500 ML IV SCH; -D5W IV SCH; -FOSAPREPITANT (CANCER CENTER) 150 MG in NS (IVPB) CANCER CENTER ONLY 150 ML IV SCH; +IOHEXOL 350 MG/ML 100 ML (OMNIPAQUE 350) VIAL IV ONE; +NS 100 ML (IVPB) BAG IV ONE; -OXALIPLATIN IV SCH; -diphenhydrAMINE 25 MG TAB (BENADRYL) CANCER CENTER PO SCH
--- NOTE | 2021-09-07 11:15 | Diagnostic Imaging Report ---
EXAMINATION: CT chest, abdomen and pelvis with intravenous contrast. TECHNIQUE: Multiple contiguous axial images were obtained through the chest, abdomen and pelvis after the uneventful administration of intravenous contrast. All CT scans use one or more of the following dose optimizing techniques: automated exposure control, MA and/or KvP adjustment based on patient size and exam type or iterative reconstruction. HISTORY: MALIGNANT NEOPLASM OF STOMACH COMPARISON: None available. FINDINGS: Thyroid: The visualized thyroid gland is normal. Mediastinum: Heart size is normal without significant pericardial effusion. The aorta is normal in caliber. No suspicious lymphadenopathy. A right-sided portacatheter is present. Lungs and airways: The lungs are clear without consolidation, pleural effusion, or pneumothorax. There is no suspicious pulmonary lesion. The airways are normal. Solid organs: The liver is normal without focal lesion. The gallbladder is normal. There is no biliary ductal dilation. Pancreas is normal. Spleen is normal. Adrenal glands are normal. There is right renal cortical scarring. No hydronephrosis. Bowel: The stomach and small bowel are normal without obstruction. Surgical changes of the stomach. There is no bowel obstruction. Peritoneum: There is no intraperitoneal free fluid or free air. No suspicious lymphadenopathy. Vasculature: Normal without aneurysm. Musculoskeletal: No suspicious osseous lesion or compression fracture. Pelvis: The uterus and adnexa are normal. The urinary bladder is normal. IMPRESSION: 1. No findings of metastatic disease within the chest, abdomen, or pelvis. Dictated by: Dictated on workstation # [id number]
== END ==
LOC: RAD 09:45
PROVIDERS: ATTEND Internal Medicine Hematology & Oncology
DX: C16.9 Malignant neoplasm of stomach, unspecified (principal)
CPT/HCPCS: 71260; 74177

== ENCOUNTER 2021-10-05 14:01 | Outpatient (RCR) | payer OTHER ==
[2021-09-14 14:04] LABS: BASOPHILS % (AUTO) 1 % (0-10); EOSINOPHILS % (AUTO) 1 % (0-10); HEMATOCRIT 32 % (35-52); HEMOGLOBIN 10.5 g/dL (11.5-16.0); LYMPHOCYTES # (AUTO) 1.2 10^3/uL (1.0-4.0); LYMPHOCYTES % (AUTO) 33 % (12-44); MEAN CORPUSCULAR HEMOGLOBIN 28 pg (25-34); MEAN CORPUSCULAR HGB CONC 33 g/dL (32-36); MEAN CORPUSCULAR VOLUME 83 fL (80-99); MEAN PLATELET VOLUME 10.4 fL (9.0-12.2); MONOCYTES # (AUTO) 0.5 10^3/uL (0.0-1.0); MONOCYTES % (AUTO) 15 % (0-12); NEUTROPHILS # (AUTO) 1.8 10^3/uL (1.8-7.8); NEUTROPHILS % (AUTO) 50 % (42-75); PLATELET COUNT 183 10^3/uL (130-400); WHITE BLOOD COUNT 3.6 10^3/uL (4.3-11.0)
[2021-09-14 14:29] LABS: BILIRUBIN,TOTAL 1.1 MG/DL (0.1-1.0); CALCIUM 8.7 MG/DL (8.5-10.1); CREATININE SERUM 0.69 MG/DL (0.60-1.30); POTASSIUM 3.3 MMOL/L (3.6-5.0); TOTAL PROTEIN 6.9 GM/DL (6.4-8.2)
[2021-09-24 10:32] LABS: BASOPHILS % (AUTO) 1 % (0-10); EOSINOPHILS # (AUTO) 0.1 10^3/uL (0.0-0.3); EOSINOPHILS % (AUTO) 4 % (0-10); HEMATOCRIT 34 % (35-52); HEMOGLOBIN 11.2 g/dL (11.5-16.0); LYMPHOCYTES # (AUTO) 0.8 10^3/uL (1.0-4.0); LYMPHOCYTES % (AUTO) 35 % (12-44); MEAN CORPUSCULAR HEMOGLOBIN 29 pg (25-34); MEAN CORPUSCULAR HGB CONC 33 g/dL (32-36); MEAN CORPUSCULAR VOLUME 86 fL (80-99); MEAN PLATELET VOLUME 11.2 fL (9.0-12.2); MONOCYTES # (AUTO) 0.6 10^3/uL (0.0-1.0); MONOCYTES % (AUTO) 26 % (0-12); NEUTROPHILS # (AUTO) 0.8 10^3/uL (1.8-7.8); NEUTROPHILS % (AUTO) 34 % (42-75); PLATELET COUNT 161 10^3/uL (130-400); WHITE BLOOD COUNT 2.4 10^3/uL (4.3-11.0)
[2021-09-24 10:52] LABS: ALBUMIN 3.9 GM/DL (3.2-4.5); BILIRUBIN,TOTAL 1.2 MG/DL (0.1-1.0); CALCIUM 8.9 MG/DL (8.5-10.1); CREATININE SERUM 0.75 MG/DL (0.60-1.30); POTASSIUM 3.4 MMOL/L (3.6-5.0); TOTAL PROTEIN 6.9 GM/DL (6.4-8.2)
[2021-09-24 20:58] LABS: HEPATITIS C ANTIBODY C Non-Reactive (Non-Reactive)
[~2021-10-05] VITALS: Ht 167.6 cm; Wt 55.8 kg
[~2021-10-05 14:01] MED LIST changes: -CATHETER FLUSH 10 ML SYR IV PRN; +D5W 500 ML IV SOLUTION 500 ML IV SCH; +D5W IV SCH; +FAMOTIDINE 20MG/2ML IV (PEPCID) IV ONE; +FAMOTIDINE 20MG/2ML IV (PEPCID) ONE; +FOSAPREPITANT (CANCER CENTER) 150 MG in NS (IVPB) CANCER CENTER ONLY 150 ML IV SCH; +HEParin (CENTRAL IV FLUSH) 500 UNIT/5 ML SYR IV PRN; -IOHEXOL 350 MG/ML 100 ML (OMNIPAQUE 350) VIAL IV ONE; -NS 100 ML (IVPB) BAG IV ONE; +OXALIPLATIN IV SCH; +PALONOSETRON HCL 0.25 MG, dexAMETHasone INJECTION 10 MG in NS (IVPB) 50 ML IV SCH; +diphenhydrAMINE 25 MG TAB (BENADRYL) PO SCH
[2021-10-05 14:21] LABS: BASOPHILS % (AUTO) 1 % (0-10); EOSINOPHILS # (AUTO) 0.1 10^3/uL (0.0-0.3); EOSINOPHILS % (AUTO) 2 % (0-10); HEMATOCRIT 34 % (35-52); HEMOGLOBIN 10.7 g/dL (11.5-16.0); LYMPHOCYTES # (AUTO) 1.1 10^3/uL (1.0-4.0); LYMPHOCYTES % (AUTO) 21 % (12-44); MEAN CORPUSCULAR HEMOGLOBIN 29 pg (25-34); MEAN CORPUSCULAR HGB CONC 32 g/dL (32-36); MEAN CORPUSCULAR VOLUME 91 fL (80-99); MEAN PLATELET VOLUME 10.3 fL (9.0-12.2); MONOCYTES # (AUTO) 0.7 10^3/uL (0.0-1.0); MONOCYTES % (AUTO) 12 % (0-12); NEUTROPHILS # (AUTO) 3.5 10^3/uL (1.8-7.8); NEUTROPHILS % (AUTO) 65 % (42-75); PLATELET COUNT 219 10^3/uL (130-400); WHITE BLOOD COUNT 5.5 10^3/uL (4.3-11.0)
[2021-10-05 14:40] LABS: ALBUMIN 3.9 GM/DL (3.2-4.5); BILIRUBIN,TOTAL 0.8 MG/DL (0.1-1.0); CALCIUM 8.8 MG/DL (8.5-10.1); CREATININE SERUM 0.71 MG/DL (0.60-1.30); POTASSIUM 4.5 MMOL/L (3.6-5.0)
== END 2021-10-06 | disposition home or self-care (01) ==
LOC: ONC 14:01
PROVIDERS: ATTEND Internal Medicine Hematology & Oncology
DX: C16.9 Malignant neoplasm of stomach, unspecified (principal); K22.70 Barrett's esophagus without dysplasia
CPT/HCPCS: 36415; 36591; 80053; 80074; 82378; 82728; 83540; 83550; 85025; 99213

== ENCOUNTER 2021-10-08 10:08 | Outpatient (RCR) | payer OTHER ==
[~2021-10-08 10:08] MED LIST changes: -FAMOTIDINE 20MG/2ML IV (PEPCID) IV ONE; +FAMOTIDINE 20MG/2ML IV (PEPCID) IV SCH; -FAMOTIDINE 20MG/2ML IV (PEPCID) ONE
== END 2021-11-06 | disposition home or self-care (01) ==
LOC: ONC 10:08
PROVIDERS: ATTEND Internal Medicine Hematology & Oncology
DX: C16.9 Malignant neoplasm of stomach, unspecified (principal); K22.70 Barrett's esophagus without dysplasia; K92.2 Gastrointestinal hemorrhage, unspecified; D64.9 Anemia, unspecified; R74.01 Elevation of levels of liver transaminase levels; Z93.1 Gastrostomy status; Z98.890 Other specified postprocedural states; Z92.21 Personal history of antineoplastic chemotherapy
CPT/HCPCS: 99213

== ENCOUNTER 2021-12-13 09:33 | Outpatient (RCR) | payer OTHER ==
[2021-12-07 13:55] LABS: BASOPHILS % (AUTO) 1 % (0-10); EOSINOPHILS # (AUTO) 0.1 10^3/uL (0.0-0.3); EOSINOPHILS % (AUTO) 2 % (0-10); HEMATOCRIT 37 % (35-52); HEMOGLOBIN 12.3 g/dL (11.5-16.0); LYMPHOCYTES # (AUTO) 1.9 10^3/uL (1.0-4.0); LYMPHOCYTES % (AUTO) 31 % (12-44); MEAN CORPUSCULAR HEMOGLOBIN 30 pg (25-34); MEAN CORPUSCULAR HGB CONC 33 g/dL (32-36); MEAN CORPUSCULAR VOLUME 90 fL (80-99); MEAN PLATELET VOLUME 10.6 fL (9.0-12.2); MONOCYTES # (AUTO) 0.5 10^3/uL (0.0-1.0); MONOCYTES % (AUTO) 8 % (0-12); NEUTROPHILS # (AUTO) 3.6 10^3/uL (1.8-7.8); NEUTROPHILS % (AUTO) 58 % (42-75); PLATELET COUNT 241 10^3/uL (130-400); WHITE BLOOD COUNT 6.2 10^3/uL (4.3-11.0)
[2021-12-07 14:14] LABS: BILIRUBIN,TOTAL 0.7 MG/DL (0.1-1.0); CALCIUM 8.8 MG/DL (8.5-10.1); CREATININE SERUM 0.69 MG/DL (0.60-1.30); TOTAL PROTEIN 7.2 GM/DL (6.4-8.2)
[~2021-12-13 09:33] MED LIST changes: -D5W 500 ML IV SOLUTION 500 ML IV SCH; -D5W IV SCH; -FAMOTIDINE 20MG/2ML IV (PEPCID) IV SCH; -FOSAPREPITANT (CANCER CENTER) 150 MG in NS (IVPB) CANCER CENTER ONLY 150 ML IV SCH; -HEParin (CENTRAL IV FLUSH) 500 UNIT/5 ML SYR IV PRN; -OXALIPLATIN IV SCH; -PALONOSETRON HCL 0.25 MG, dexAMETHasone INJECTION 10 MG in NS (IVPB) 50 ML IV SCH; -diphenhydrAMINE 25 MG TAB (BENADRYL) PO SCH
[2021-12-13] MEDS ORDERED: ALTEPLASE 2 MG (CATHFLO) IV ONE (10:45)
== END 2022-01-06 | disposition home or self-care (01) ==
LOC: ONC 09:33
PROVIDERS: ATTEND Internal Medicine Hematology & Oncology
DX: C16.9 Malignant neoplasm of stomach, unspecified (principal); D64.9 Anemia, unspecified
CPT/HCPCS: 36415; 80053; 82728; 83540; 83550; 85025

== ENCOUNTER → 2022-03-07 | Outpatient (CLI) | payer SELFPAY ==
[~2022-03-07] VITALS: Ht 167.7 cm; Wt 60.5 kg
[2022-03-07 11:50] VITALS: BP 121/78
--- NOTE | 2022-03-07 12:05 | Diagnostic Imaging Report ---
INDICATION: Port-A-Cath placement. COMPARISON: None AP view of chest is obtained. There is right anterior chest wall port in place with catheter looping into the neck and passing caudal to the level of the mid superior vena cava. There is no pneumothorax. No consolidation or pleural fluid is seen. IMPRESSION: There is redundancy of Port-A-Cath in the lower right neck, however tip reaches the mid superior vena cava. Dictated by: Dictated on workstation # [id number]
== END ==
LOC: SDC 11:11
PROVIDERS: ATTEND Surgery
DX: T82.598A Other mechanical complication of other cardiac and vascular devices and implants, initial encounter (principal); Z85.028 Personal history of other malignant neoplasm of stomach
CPT/HCPCS: 71045; 96523

== ENCOUNTER 2022-03-08 08:23 | Outpatient (CLI) | payer SELFPAY | END 2022-03-08 11:31 | disposition home or self-care (01) | LOC: PREOP 08:23 | PROVIDERS: ATTEND Surgery | DX: Z01.818 Encounter for other preprocedural examination (principal) ==

== ENCOUNTER 2022-03-13 12:58 | Day surgery (SDC) | payer OTHER ==
[~2022-03-13] VITALS: Ht 167.6 cm; Wt 60.3 kg
[2022-03-13] MEDS ORDERED: LACTATED RINGERS 1,000 ML IV STA (13:04)
--- NOTE | 2022-03-13 13:10 | Progress Note-Pre Operative ---
Pre-Operative Progress Note Date of Available H&P: Mar 13, 2022 Date H&P Reviewed: Mar 13, 2022 Time H&P Reviewed: 13:00 History & Physical: No changes noted Pre-Operative Diagnosis: hx gastric adenocarcinoma LITA HARRIS MD Mar 13, 2022 13:10
--- NOTE | 2022-03-13 13:12 | Discharge Inst-Surgical ---
D/C Lap Instructions-KIMBERLY Follow Up Activity as tolerated High Fiber Diet 25g or more per day Avoid Alcohol, Caffeine, Spicy [place] and Acid foods. Drink 64 fluid oz or more of fluids per day. Symptoms to Report: Fever over 101 degree F, Nausea/Vomiting If any problems/questions: Contact your physician or go to Emergency Room LITA HARRIS MD Mar 13, 2022 13:12
[2022-03-13] MEDS ORDERED: LACTATED RINGERS 1,000 ML IV ONE (13:13)
[2022-03-13] MEDS ORDERED: HURRICAINE EXT TUBE (BENZOCAINE) XX PRN (13:15)
[2022-03-13] MEDS ORDERED: ONDANSETRON 4 MG/2 ML (SDV) Z0FRAN IVP PRN (13:15)
[2022-03-13] MEDS ORDERED: ONDANSETRON 4 MG (ZOFRAN) ORAL DISSOLVE TAB PO PRN (13:15)
[2022-03-13] MEDS ORDERED: LIDOCAINE JELLY 2% 6 ML SYRINGE MM PRN (13:15)
[2022-03-13 13:17] VITALS: BP 137/79
[2022-03-13] MEDS ORDERED: MIDAZOLAM 2 MG/2 ML (VERSED) VIAL ONE (14:15)
[2022-03-13] MEDS ORDERED: proPOfol 200 MG/20 ML (DIPRIVAN) VIAL IV ONE (14:16)
[2022-03-13 14:40] VITALS: BP 110/65
[2022-03-13 14:45] VITALS: BP 109/68
[2022-03-13 14:50] VITALS: BP 109/72
[2022-03-13 15:07] VITALS: BP 109/72
--- NOTE | 2022-03-13 16:05 | Progress Note-Post Operative ---
Post-Operative Progess Note Surgeon (s)/Air Hole Driller (s) Surgeon LITA HARRIS MD Air Hole Driller: none Pre-Operative Diagnosis hx gastric adenocarcinoma Post-Operative Diagnosis mild gastric pouch gastritis, small-mod HH(2.5cm), normal gastro-jejunal anastamosis. Procedure & Operative Findings Date of Procedure 03/13/22 Procedure Performed/Findings EGD with bx. Anesthesia Type mac Estimated Blood Loss Estimated blood loss (mL): minimal Specimens/Packing Specimens Removed g-j anastamosis LITA HARRIS MD Mar 13, 2022 16:04
--- NOTE | 2022-03-14 01:43 | OPERATIVE REPORT ---
DATE OF SERVICE: 03/13/2022 ATTENDING PRIMARY CARE: [facility]. PREOPERATIVE DIAGNOSIS: History of gastric adenocarcinoma. POSTOPERATIVE DIAGNOSIS: Normal gastric pouch, normal gastrojejunal anastomosis widely patent, small to moderate size hiatal hernia approximately 2.5 cm in size. PROCEDURE: EGD with biopsy. SURGEON: Lita Harris MD. ANESTHESIA: Monitored anesthesia care. ESTIMATED BLOOD LOSS: Minimal. FINDINGS: Normal gastric pouch, normal gastrojejunal anastomosis widely patent, small to moderate size hiatal hernia approximately 2.5 cm in size. DISPOSITION: The patient tolerated the procedure well. INDICATIONS: The patient is a 41-year-old female originally from [facility], who is [place]ian speaking. She was initially found to be anemic in her home country and she otherwise felt healthy and was eating well and exercising regularly; however, she did notice dark color stools on intermittent basis and she was found to be anemic with a hemoglobin of 6.9 on 12/22/2020. An EGD and colonoscopy were then performed and she was found to have a gastric ulcer along the body of the greater curvature of the stomach that was biopsied and consistent with an adenocarcinoma that was poorly differentiated. She then underwent a PET scan and only the small area of the stomach appeared to light up, which was also nonfull thickness of the stomach and more consistent with a stage I tumor. She was also found to be H. pylori positive and was treated appropriately. We were able to get her to [place], [place] for what appears to be a laparoscopic subtotal gastrectomy as well as a Esther-en-Y gastrojejunostomy. She also underwent two rounds of chemotherapy. She is now here for followup EGD. She does not report any nausea, no vomiting as well as no hematemesis, no coffee-ground emesis. She is currently on Protonix 40 mg daily. DESCRIPTION OF PROCEDURE: The patient was brought to the endoscopy suite, laid in left lateral decubitus position. After adequate IV pain and sedative medications and monitored anesthesia care, the mouthpiece was applied. The endoscope was placed in the mouth, visualizing the pharynx and hypopharyngeal region. Vocal cords, epiglottis and vallecula identified and appeared to be normal. The endoscope was gently intubated into the esophageal opening and esophagus insufflated. The endoscope was then advanced through the first, second and third portion of esophagus at the level of the GE junction, reflux esophagitis, Todd grade B identified. No ulcers or strictures identified in this region and a biopsy was taken with forceps with visualization of good hemostasis. The endoscope was then advanced in the stomach and endoscope retroflexed, visualizing a small to moderate size hiatal hernia approximately 2.5 cm in size. She does have a gastric pouch with a size consistent with a subtotal gastrectomy. The gastrojejunostomy was widely patent. There were no recurrent lesions, no strictures, no ulcerations. Biopsies at the anastomosis in a concentric manner were performed with forceps with visualization of good hemostasis. The endoscope was then advanced into the jejunal Esther limb, which was widely patent and no ulcerations. The endoscope was then slowly withdrawn while taking a second look and suctioning residual air with no additional findings. The patient tolerated the procedure well. We will await the biopsy results; however, have her continue with Protonix 40 mg daily and the necessary lifestyle and dietary accommodation including avoidance of salty foods as well as processed food, high in Nitrosamines as well as smoked foods. We will also have her proceed with the necessary lifestyle and dietary accommodation including small and more frequent meals, avoidance of eating at night as well as head elevation while lying supine. She also needs to continue to take her Protonix 40 mg daily. We will recommend a followup EGD in 1 year. Job ID: [id number] DocumentID: [id number] Dictated Date: 03/13/2022 14:48:48 Fleet Administrative Assistant Date: 03/14/2022 01:42:00 Dictated By: LITA HARRIS MD [facility] HEALTHJulio C
--- NOTE | 2022-03-14 08:44 | Anesthesia-General Post-Op ---
MAC Patient Condition Mental Status/LOC: Same as Preop Cardiovascular: Satisfactory Nausea/Vomiting: Absent Respiratory: Satisfactory Pain: Controlled Complications: Absent Post Op Complications Complications None Follow Up Care/Instructions Patient Instructions None needed. Anesthesiology Discharge Order Discharge Order Patient is doing well, no complaints, stable vital signs, no apparent adverse anesthesia problems. No complications reported per nursing. LEIDY MAJOR CRNA Mar 14, 2022 08:44
== END 2022-03-13 15:22 | disposition home or self-care (01) ==
LOC: ENDO 12:58
PROVIDERS: ATTEND Surgery
DX: K29.50 Unspecified chronic gastritis without bleeding (principal); K44.9 Diaphragmatic hernia without obstruction or gangrene; Z85.028 Personal history of other malignant neoplasm of stomach
CPT/HCPCS: 84703

== ENCOUNTER 2022-04-18 10:55 | Outpatient (RCR) | payer OTHER ==
[2022-04-12 13:32] LABS: BASOPHILS % (AUTO) 1 % (0-10); EOSINOPHILS # (AUTO) 0.1 10^3/uL (0.0-0.3); EOSINOPHILS % (AUTO) 1 % (0-10); HEMATOCRIT 35 % (35-52); HEMOGLOBIN 11.5 g/dL (11.5-16.0); LYMPHOCYTES # (AUTO) 2.6 10^3/uL (1.0-4.0); LYMPHOCYTES % (AUTO) 42 % (12-44); MEAN CORPUSCULAR HEMOGLOBIN 28 pg (25-34); MEAN CORPUSCULAR HGB CONC 33 g/dL (32-36); MEAN CORPUSCULAR VOLUME 85 fL (80-99); MONOCYTES # (AUTO) 0.6 10^3/uL (0.0-1.0); MONOCYTES % (AUTO) 10 % (0-12); NEUTROPHILS % (AUTO) 47 % (42-75); PLATELET COUNT 274 10^3/uL (130-400); WHITE BLOOD COUNT 6.3 10^3/uL (4.3-11.0)
[2022-04-12 14:03] LABS: ALBUMIN 4.2 GM/DL (3.2-4.5); BILIRUBIN,TOTAL 0.8 MG/DL (0.1-1.0); CALCIUM 9.2 MG/DL (8.5-10.1); CREATININE SERUM 0.74 MG/DL (0.60-1.30); POTASSIUM 3.3 MMOL/L (3.6-5.0); TOTAL PROTEIN 7.4 GM/DL (6.4-8.2)
== END 2022-05-08 | disposition home or self-care (01) ==
LOC: ONC 10:55
PROVIDERS: ATTEND Internal Medicine Hematology & Oncology
DX: Z45.2 Encounter for adjustment and management of vascular access device (principal); C16.9 Malignant neoplasm of stomach, unspecified; D50.0 Iron deficiency anemia secondary to blood loss (chronic); K22.70 Barrett's esophagus without dysplasia
CPT/HCPCS: 36415; 80053; 82728; 83540; 83550; 85025; 96523; 99213

== ENCOUNTER 2022-05-19 17:29 | Observation (INO) | payer OTHER ==
[~2022-05-19] VITALS: Ht 165 cm; Wt 60.3 kg
--- NOTE | 2022-05-19 18:03 | ED GI ---
General Chief Complaint: Abdominal/GI Problems Stated Complaint: ABD PAIN/VOMITING Source of Information: Patient Exam Limitations: No Limitations History of Present Illness Date Seen by Provider: May 19, 2022 Time Seen by Provider: 17:50 Initial Comments Patient is a 42-year-old female who presents to the emergency department with ac koko onset of diffuse abdominal pain and nausea. Patient has a history of stomach adenocarcinoma that required subtotal gastrectomy and gastrojejunostomy a little over a year ago in [place]. She underwent 2 rounds of chemotherapy treatment. No recent fevers. No diarrhea. No recent abdominal trauma. No medications today for the symptoms. Allergies and Home Medications Allergies Coded Allergies: No Known Drug Allergies (Unverified , 12/12/20) Patient Home Medication List Home Medication List Reviewed: Yes Pantoprazole Sodium (Protonix) 40 Mg Tablet.dr, 40 MG PO DAILY Prescribed by: LITA HARRIS on 12/22/20 1112 Review of Systems Review of Systems Constitutional: no symptoms reported EENTM: No Symptoms Reported Respiratory: No Symptoms Reported Cardiovascular: No Symptoms Reported Gastrointestinal: See HPI, Abdominal Pain, Nausea, Vomiting Past Shhghud-Szhurw-Jlrunv Hx Immunizations Up To Date Tetanus Booster (TDap): Unknown First/Initial COVID19 Vaccinat: NO Second COVID19 Vaccination Sal: NO Third COVID19 Vaccination Date: NO Seasonal Allergies Seasonal Allergies: No Past Medical History Surgeries: Yes Respiratory: No Cardiac: No Neurological: No Genitourinary: No Gastrointestinal: No Musculoskeletal: No Endocrine: No HEENT: No Cancer: No Stomach Did You Recieve Any Treatments: Yes What Type of Treatment Did You: Chemotherapy, Surgical Intervention Psychosocial: No Integumentary: No Blood Disorders: Yes (ANEMIA) Physical Exam Vital Signs Vital Signs - First Documented 05/19/22 17:48 Temp 36.7 Pulse 62 Resp 18 B/P (MAP) 114/73 (87) Pulse Ox 100 Capillary Refill : Height/Weight/BMI Height: '" Weight: lbs. oz. kg; 21.46 BMI Method: General Appearance: WD/WN, no apparent distress HEENT: PERRL/EOMI, normal ENT inspection, TMs normal, pharynx normal Neck: non-tender, full range of motion, supple, normal inspection Respiratory: chest non-tender, lungs clear, normal breath sounds, no respiratory distress Cardiovascular: regular rate, rhythm, no edema Gastrointestinal: normal bowel sounds, soft, tenderness Extremities: normal range of motion, non-tender, normal inspection, no pedal edema, no calf tenderness Neurologic/Psychiatric: no motor/sensory deficits, alert, normal mood/affect, oriented x 3 Skin: normal color, warm/dry Focused Exam Lactate Level 05/19/22 19:12: Lactic Acid Level 1.79 Lactic Acid Level Laboratory Tests Test 05/19/22 19:12 Lactic Acid Level 1.79 MMOL/L (0.50-2.00) Progress/Results/Core Measures Results/Orders Lab Results Laboratory Tests Test 05/19/22 17:59 05/19/22 19:12 Range/Units White Blood Count 14.6 H 4.3-11.0 10^3/uL Red Blood Count 4.81 3.80-5.11 10^6/uL Hemoglobin 13.2 11.5-16.0 g/dL Hematocrit 39 35-52 % Mean Corpuscular Volume 82 80-99 fL Mean Corpuscular Hemoglobin 27 25-34 pg Mean Corpuscular Hemoglobin Concent 34 32-36 g/dL Red Cell Distribution Width 13.4 10.0-14.5 % Platelet Count 251 130-400 10^3/uL Mean Platelet Volume 11.1 9.0-12.2 fL Immature Granulocyte % (Auto) 1 % Neutrophils (%) (Auto) 90 H 42-75 % Lymphocytes (%) (Auto) 6 L 12-44 % Monocytes (%) (Auto) 3 0-12 % Eosinophils (%) (Auto) 0 0-10 % Basophils (%) (Auto) 0 0-10 % Neutrophils # (Auto) 13.2 H 1.8-7.8 10^3/uL Lymphocytes # (Auto) 0.8 L 1.0-4.0 10^3/uL Monocytes # (Auto) 0.5 0.0-1.0 10^3/uL Eosinophils # (Auto) 0.0 0.0-0.3 10^3/uL Basophils # (Auto) 0.0 0.0-0.1 10^3/uL Immature Granulocyte # (Auto) 0.1 0.0-0.1 10^3/uL Neutrophils % (Manual) 89 % Lymphocytes % (Manual) 4 % Monocytes % (Manual) 4 % Eosinophils % (Manual) 0 % Basophils % (Manual) 0 % Band Neutrophils 3 % Blood Morphology Comment NORMAL Sodium Level 137 135-145 MMOL/L Potassium Level 3.5 L 3.6-5.0 MMOL/L Chloride Level 106 98-107 MMOL/L Carbon Dioxide Level 15 L 21-32 MMOL/L Anion Gap 16 H 5-14 MMOL/L Blood Urea Nitrogen 12 7-18 MG/DL Creatinine 0.80 0.60-1.30 MG/DL Estimat Glomerular Filtration Rate 94 BUN/Creatinine Ratio 15 Glucose Level 143 H 70-105 MG/DL Calcium Level 9.9 8.5-10.1 MG/DL Corrected Calcium 8.5-10.1 MG/DL Total Bilirubin 1.0 0.1-1.0 MG/DL Aspartate Amino Transf (AST/SGOT) 29 5-34 U/L Alanine Aminotransferase (ALT/SGPT) 39 0-55 U/L Alkaline Phosphatase 114 40-136 U/L Total Protein 8.4 H 6.4-8.2 GM/DL Albumin 4.7 H 3.2-4.5 GM/DL Lipase 621 H 8-78 U/L Lactic Acid Level 1.79 0.50-2.00 MMOL/L My Orders Orders - LUANNE KEYES APRN Cbc With Automated Diff (05/19/22 18:01) Comprehensive Metabolic Panel (05/19/22 18:01) Iv Start Anesthesia (Order) (05/19/22 18:01) Lipase (05/19/22 18:01) Ct Abdomen/Pelvis W (05/19/22 18:01) Ua Culture If Indicated (05/19/22 18:01) Ondansetron Injection (Zofran Injectio (05/19/22 18:15) Fentanyl Inj (Sublimaze Injection) (05/19/22 18:15) Manual Differential (05/19/22 17:59) Iohexol Injection (Omnipaque 350 Mg/Ml 1 (05/19/22 18:30) Received Contrast (Hold Metformin- Contr (05/19/22 18:30) Ns (Ivpb) (Sodium Chloride 0.9% Ivpb Bag (05/19/22 18:30) Ns Iv 1000 Ml (Sodium Chloride 0.9%) (05/19/22 18:45) Hcg,Qualitative Urine (05/19/22 18:41) Lactic Acid Analyzer (05/19/22 18:50) Morphine Injection (Morphine Injection (05/19/22 18:53) Ed Admission (Communication) (05/19/22 19:14) Medications Given in ED Current Medications Medications Dose Ordered Sig/Karena Route Start Time Stop Time Status Last Admin Dose Admin Fentanyl Citrate 50 mcg ONCE ONCE IVP 05/19/22 18:15 05/19/22 18:16 DC 05/19/22 18:12 50 MCG Iohexol 100 ml ONCE ONCE IV 05/19/22 18:30 05/19/22 18:31 DC 05/19/22 18:30 70 ML Ondansetron HCl 4 mg ONCE ONCE IVP 05/19/22 18:15 05/19/22 18:16 DC 05/19/22 18:12 4 MG Sodium Chloride 100 ml ONCE ONCE IV 05/19/22 18:30 05/19/22 18:31 DC 05/19/22 18:31 80 ML Vital Signs/I&O 05/19/22 17:48 Temp 36.7 Pulse 62 Resp 18 B/P (MAP) 114/73 (87) Pulse Ox 100 Progress Progress Note : Progress Note Patient is nontoxic and well-hydrated on exam. She is awake alert and oriented. Vital signs are overall reassuring. Stomach is diffusely tender to palpation without distention/rigidity. Laboratory evaluation notable for mild leukocytosis as well as elevated lipase. CT of the abdomen pelvis reveals likely high-grade small bowel obstruction. Poke with general surgery who agreed to see the patient in consultation. They recommended n.p.o. status and IV hydration. They stated an NG tube would likely not be indicated due to patient's previous stomach surgery. I spoke with the hospitalist who kindly agreed to admit. Patient and her spouse were updated on plan of care and they verbalized understanding. Surinamese video crystal grower utilized for communication. Consults : Consulting Physician: PRIYANK MORAN DO Departure Communication (Admissions) Time/Spoke to Consulting Phy: 18:57 agrees to see in consultation; recs for NPO and IV fluids; no NG tube due to h/o subtotal gastrectomy Impression Primary Impression: Small bowel obstruction Disposition: XFER SHT-TRM HOSP Condition: Stable Admissions Decision to Admit/Date: May 19, 2022 Time/Decision to Admit Time: 19:10 Departure-Patient Inst. Referrals: [facility] (PCP/Family) Primary Care Physician LUANNE KEYES APRN May 19, 2022 18:03
[2022-05-19 18:09] LABS: BASOPHILS % (AUTO) 0 % (0-10); EOSINOPHILS % (AUTO) 0 % (0-10); HEMATOCRIT 39 % (35-52); HEMOGLOBIN 13.2 g/dL (11.5-16.0); LYMPHOCYTES # (AUTO) 0.8 10^3/uL (1.0-4.0); LYMPHOCYTES % (AUTO) 6 % (12-44); MEAN CORPUSCULAR HEMOGLOBIN 27 pg (25-34); MEAN CORPUSCULAR HGB CONC 34 g/dL (32-36); MEAN CORPUSCULAR VOLUME 82 fL (80-99); MEAN PLATELET VOLUME 11.1 fL (9.0-12.2); MONOCYTES # (AUTO) 0.5 10^3/uL (0.0-1.0); MONOCYTES % (AUTO) 3 % (0-12); NEUTROPHILS # (AUTO) 13.2 10^3/uL (1.8-7.8); NEUTROPHILS % (AUTO) 90 % (42-75); PLATELET COUNT 251 10^3/uL (130-400); WHITE BLOOD COUNT 14.6 10^3/uL (4.3-11.0)
[2022-05-19] MEDS ORDERED: ONDANSETRON 4 MG/2 ML (SDV) Z0FRAN IVP ONE (18:15)
[2022-05-19] MEDS ORDERED: fentaNYL INJ 100 MCG/2 ML AMP IVP ONE (18:15)
[2022-05-19] MEDS ORDERED: NS 100 ML (IVPB) BAG IV ONE (18:30)
[2022-05-19] MEDS ORDERED: HOLD METFORMIN - RECEIVED CONTRAST 20 ML VIAL IV SCH (18:30)
[2022-05-19] MEDS ORDERED: IOHEXOL 350 MG/ML 100 ML (OMNIPAQUE 350) VIAL IV ONE (18:30)
[2022-05-19 18:36] LABS: ALANINE AMINOTRANSFERASE 39 U/L (0-55); ALBUMIN 4.7 GM/DL (3.2-4.5); ALKALINE PHOSPHATASE 114 U/L (40-136); BAND NEUTROPHILS 3 %; BASOPHILS % (MANUAL) 0 %; BUN/CREATININE RATIO 15; CALCIUM 9.9 MG/DL (8.5-10.1); CARBON DIOXIDE 15 MMOL/L (21-32); CHLORIDE 106 MMOL/L (98-107); EOSINOPHILS % (MANUAL) 0 %; GFR ESTIMATED 94; GLUCOSE 143 MG/DL (70-105); LIPASE 621 U/L (8-78); LYMPHOCYTES % (MANUAL) 4 %; MONOCYTES % (MANUAL) 4 %; NEUTROPHILS % (MANUAL) 89 %; POTASSIUM 3.5 MMOL/L (3.6-5.0); RBC MORPH NORMAL; SODIUM 137 MMOL/L (135-145); TOTAL PROTEIN 8.4 GM/DL (6.4-8.2)
--- NOTE | 2022-05-19 18:43 | Diagnostic Imaging Report ---
PROCEDURE: CT abdomen and pelvis with contrast. TECHNIQUE: Multiple contiguous axial images were obtained through the abdomen and pelvis after administration of intravenous contrast. Auto Exposure Controls were utilized during the CT exam to meet ALARA standards for radiation dose reduction. All CT scans use one or more of the following dose optimizing techniques: automated exposure control, MA and/or KvP adjustment based on patient size and exam type or iterative reconstruction. INDICATION: Abdominal pain and nausea. COMPARISON: Prior examination from 09/07/2021. FINDINGS: Heart size is normal. The lung bases are clear. The liver is normal in size. Gallbladder is unremarkable. There is no biliary ductal dilatation. Spleen is normal. The pancreas and adrenal glands are unremarkable. There is a 4 mm nonobstructing stone in the left kidney. There is also some cortical scarring in both kidneys. Aorta is nonaneurysmal. There are dilated loops of small bowel compatible with small bowel obstruction. There is no free air. There is no ascites. Bladder is normal. There is no pelvic mass, adenopathy or free fluid. There are degenerative changes at L4-L5. IMPRESSION: 1. Multiple dilated loops of small bowel which appear to be proximal, either jejunal or proximal ileal. These measure up to 4.3 cm in diameter. This is suspect for high-grade small bowel obstruction. 2. Cortical scarring in the kidneys, bilaterally, with a 4 mm left renal stone which is nonobstructing. 3. Focal degenerative disc disease at L4-L5. Dictated by: Dictated on workstation # [id number]
[2022-05-19] MEDS ORDERED: NS IV 1000 ML 1,000 ML IV SCH (18:45)
[2022-05-19] MEDS ORDERED: morphine INJ 10 MG/ML 1ML (SYR OR VIAL) IVP STA (18:53)
[2022-05-19 20:30] VITALS: BP 137/84
[2022-05-19] MEDS ORDERED: PROCHLORPERAZINE 10 MG/2ML INJ (COMPAZINE) IV PRN (20:30)
[2022-05-19] MEDS ORDERED: SCOPOLAMINE 1.5 MG (TRANSDERM-SCOP) PATCH TD ONE (20:30)
[2022-05-19] MEDS ORDERED: ONDANSETRON 4 MG/2 ML (SDV) Z0FRAN IV PRN (20:30)
[2022-05-19] MEDS ORDERED: PROMETHAZINE INJ 25 MG/ML (PHENERGAN) AMP IM PRN (20:30)
[2022-05-19] MEDS ORDERED: hydrALAZINE (APESOLINE) 20 MG/ML VIAL IV PRN (20:30)
[2022-05-19] MEDS ORDERED: ACETAMINOPHEN 325 MG TABLET PO PRN (20:30)
[2022-05-19] MEDS ORDERED: diphenhydrAMINE 50 MG/ML INJ (BENADRYL) IVP PRN (20:30)
[2022-05-19] MEDS ORDERED: HYDROmorphone 2 MG/ML VIAL (DILAUDID) IV PRN (20:30)
[2022-05-19] MEDS ORDERED: BISACODYL 10 MG SUPP (DULCOLAX) PR PRN (20:30)
[2022-05-19] MEDS ORDERED: LORazepam INJ 2 MG/ML (ATIVAN) VIAL IVP PRN (20:30)
[2022-05-19] MEDS ORDERED: SCOPOLAMINE 1.5 MG (TRANSDERM-SCOP) PATCH ONE (20:58)
[2022-05-19] MEDS ORDERED: PROCHLORPERAZINE 10 MG/2ML INJ (COMPAZINE) ONE (20:59)
[2022-05-19] MEDS ORDERED: NS IV 1000 ML 1,000 ML ONE (20:59)
[2022-05-19] MEDS ORDERED: HYDROmorphone 2 MG/ML VIAL (DILAUDID) ONE (20:59)
[2022-05-19 21:09] VITALS: BP 114/76
[2022-05-19] MEDS: NS IV 1000 ML 1,000 ML IV SCH (21:10)
[2022-05-19] MEDS ORDERED: RT-ALBUTEROL SULF 2.5 MG/3 ML PRE-MIX VIAL INH PRN (21:15)
[2022-05-20] VITALS (7 sets, daily range): BP systolic 104–113; BP diastolic 59–71
[2022-05-20 05:48] LABS: BASOPHILS % (AUTO) 0 % (0-10); EOSINOPHILS % (AUTO) 0 % (0-10); HEMATOCRIT 35 % (35-52); HEMOGLOBIN 11.5 g/dL (11.5-16.0); LYMPHOCYTES # (AUTO) 1.5 10^3/uL (1.0-4.0); LYMPHOCYTES % (AUTO) 13 % (12-44); MEAN CORPUSCULAR HEMOGLOBIN 28 pg (25-34); MEAN CORPUSCULAR HGB CONC 33 g/dL (32-36); MEAN CORPUSCULAR VOLUME 83 fL (80-99); MEAN PLATELET VOLUME 11.6 fL (9.0-12.2); MONOCYTES # (AUTO) 0.7 10^3/uL (0.0-1.0); MONOCYTES % (AUTO) 6 % (0-12); NEUTROPHILS # (AUTO) 9.1 10^3/uL (1.8-7.8); NEUTROPHILS % (AUTO) 80 % (42-75); PLATELET COUNT 222 10^3/uL (130-400); WHITE BLOOD COUNT 11.3 10^3/uL (4.3-11.0)
[2022-05-20 06:17] LABS: ALBUMIN 3.7 GM/DL (3.2-4.5); CALCIUM 8.3 MG/DL (8.5-10.1); CREATININE SERUM 0.66 MG/DL (0.60-1.30); POTASSIUM 3.8 MMOL/L (3.6-5.0); TOTAL PROTEIN 6.5 GM/DL (6.4-8.2)
[2022-05-20] MEDS: NS IV 1000 ML 1,000 ML IV SCH ×3 (06:36→17:29)
--- NOTE | 2022-05-20 08:57 | Consultation - Surgery ---
RASTACRUZ 05/20/22 0857: History of Present Illness History of Present Illness Patient Consulted On(miguelina/time) 05/20/22 08:50 Date Seen by Provider: May 20, 2022 Time Seen by Provider: 08:15 History of Present Illness 42yo F with h/o gastric adenocarcinoma requiring subtotal gastroectomy and gastrojejunostomy and chemotherapy was admitted yesterday following acute onset of 10/10, crampy, constant, epigastric pain that radiated through the umbilical area to the RLQ. Pt history was translated by the pt's daughter. Per pt, her pain started yesterday around 3pm while sitting down at [employer]. Pt states that the pain was abrupt and severe, causing nausea and vomiting x11. Pt states that she vomited bile as she did not eat breakfast that morning. Pt notes decreased appetite for the past week, but denies it being due to pain. Pt denies hematemesis. In the ED, CT ABD/PELVIS showed multiple dilated loops of proximal small bowel, possibly jejunal or proximal ileal, measuring 4.3cm that was suggestive of a high grade bowel obstruction. Pt also had a non-obstructing 4mm L renal stone. Pt notes that her last BM was around 4pm, after the pain started. Pt denies any blood in her stool or diarrhea. Pt also denies exacerbation or alleviation of pain with BM. In room, pt is laying comfortably in bed with daughter at bedside. Pt states that her pain is currently a 0/10 and is able to ambulate to the restroom without issue. Pt continues to void. Pt has history of gastric adenocarcinoma and had the aforementioned surgery 1 year ago in [place], [place]. Pt had two rounds of chemotherapy, her last round was in October of this year. Pt is followed by Dr. Bernstein in [place] for her cancer. Pt's last EGD was in March of this year with Dr. Aggarwal and states it was "normal". Pt denies current nausea, vomiting, CP, SOB, cough, JACKSON, or lightheadedness. Allergies and Home Medications Allergies Coded Allergies: No Known Drug Allergies (Unverified , 12/12/20) Patient Home Medication List Home Medication List Reviewed: Yes Pantoprazole Sodium (Protonix) 40 Mg Tablet., 40 MG PO DAILY Prescribed by: LITA AGGARWAL on 12/22/20 1112 Past Warzqex-Mrfcox-Bgrzux Hx Patient Social History Smoking Status: Never a Smoker 2nd Hand Smoke Exposure: No Recent Hopitalizations: No Alcohol Use?: No Have you traveled recently?: No Immunizations Up To Date Tetanus Booster (TDap): Unknown Seasonal Allergies Seasonal Allergies: No Surgeries History of Surgeries: Yes (Subtotal gastrectomy and gastrojejunostomy 1 year ago in [facility] ) Surgeries: Hysterectomy Respiratory History of Respiratory Disorde: No Cardiovascular History of Cardiac Disorders: No Neurological History of Neurological Disord: Yes Neurological Disorders: Headaches /Migraines Genitourinary History of Genitourinary Disor: No Gastrointestinal History of Gastrointestinal Di: No Musculoskeletal History of Musculoskeletal Dis: No Endocrine History of Endocrine Disorders: No HEENT History of HEENT Disorders: No Cancer History of Cancer: No Cancer: Stomach (gastric adenocarcinoma) Psychosocial History of Psychiatric Problem: No Integumentary History of Skin or Integumenta: No Blood Transfusions History of Blood Disorders: Yes (ANEMIA) Family Medical History Significant Family History: Diabetes (mother) Review of Systems-General Constitutional: No chills, No diaphoresis EENTM: No ear discharge, No ear pain Respiratory: No cough, No dyspnea on exertion Cardiovascular: No chest pain, No palpitations Gastrointestinal: abdominal pain (RLQ, epigastric, and periumbilical) Genitourinary: No decreased output, No hematuria Musculoskeletal: No back pain, No gout Skin: No change in color, No change in hair/nails Psychiatric/Neurological: Denies Anxiety, Denies Depressed Physical Exam-General Problems Physical Exam Vital Signs Vital Signs - First Documented 05/19/22 05/19/22 05/19/22 17:48 20:17 21:09 Temp 36.7 Pulse 62 Resp 18 B/P (MAP) 114/73 (87) Pulse Ox 100 O2 Delivery Room Air FiO2 21 Capillary Refill : Less Than 3 Seconds General Appearance: WD/WN, no apparent distress HEENT: PERRL/EOMI Respiratory: lungs clear, normal breath sounds, no respiratory distress, no accessory muscle use Cardiovascular: regular rate, rhythm, no murmur Peripheral Pulses: 2+ Dorsalis Pedis (R), 2+ Left Dors-Pedis (L) Gastrointestinal: normal bowel sounds, soft, tenderness (epigastric, periumbilical, and RLQ) Extremities: no pedal edema, no calf tenderness Neurologic/Psychiatric: alert, oriented x 3 Skin: normal color, warm/dry Data Review Labs Laboratory Tests 05/19/22 17:59: White Blood Count 14.6H, Red Blood Count 4.81, Hemoglobin 13.2, Hematocrit 39, Mean Corpuscular Volume 82, Mean Corpuscular Hemoglobin 27, Mean Corpuscular Hemoglobin Concent 34, Red Cell Distribution Width 13.4, Platelet Count 251, Mean Platelet Volume 11.1, Immature Granulocyte % (Auto) 1, Neutrophils (%) (Auto) 90H, Lymphocytes (%) (Auto) 6L, Monocytes (%) (Auto) 3, Eosinophils (%) (Auto) 0, Basophils (%) (Auto) 0, Neutrophils # (Auto) 13.2H, Lymphocytes # (Auto) 0.8L, Monocytes # (Auto) 0.5, Eosinophils # (Auto) 0.0, Basophils # (Auto) 0.0, Immature Granulocyte # (Auto) 0.1, Neutrophils % (Manual) 89, Lymphocytes % (Manual) 4, Monocytes % (Manual) 4, Eosinophils % (Manual) 0, Basophils % (Manual) 0, Band Neutrophils 3, Blood Morphology Comment NORMAL, Sodium Level 137, Potassium Level 3.5L, Chloride Level 106, Carbon Dioxide Level 15L, Anion Gap 16H, Blood Urea Nitrogen 12, Creatinine 0.80, Estimat Glomerular Filtration Rate 94, BUN/Creatinine Ratio 15, Glucose Level 143H, Calcium Level 9.9, Corrected Calcium , Total Bilirubin 1.0, Aspartate Amino Transf (AST/SGOT) 29, Alanine Aminotransferase (ALT/SGPT) 39, Alkaline Phosphatase 114, Total Protein 8.4H, Albumin 4.7H, Lipase 621H 05/19/22 19:12: Lactic Acid Level 1.79 05/20/22 05:15: White Blood Count 11.3H, Red Blood Count 4.18, Hemoglobin 11.5, Hematocrit 35, Mean Corpuscular Volume 83, Mean Corpuscular Hemoglobin 28, Mean Corpuscular Hemoglobin Concent 33, Red Cell Distribution Width 13.5, Platelet Count 222, Mean Platelet Volume 11.6, Immature Granulocyte % (Auto) 0, Neutrophils (%) (Auto) 80H, Lymphocytes (%) (Auto) 13, Monocytes (%) (Auto) 6, Eosinophils (%) (Auto) 0, Basophils (%) (Auto) 0, Neutrophils # (Auto) 9.1H, Lymphocytes # (Auto) 1.5, Monocytes # (Auto) 0.7, Eosinophils # (Auto) 0.0, Basophils # (Auto) 0.0, Immature Granulocyte # (Auto) 0.0, Sodium Level 137, Potassium Level 3.8, Chloride Level 110H, Carbon Dioxide Level 19L, Anion Gap 8, Blood Urea Nitrogen 10, Creatinine 0.66, Estimat Glomerular Filtration Rate 112, BUN/Creatinine Ratio 15, Glucose Level 108H, Calcium Level 8.3L, Corrected Calcium 8.5, Total Bilirubin 1.0, Aspartate Amino Transf (AST/SGOT) 20, Alanine Aminotransferase (ALT/SGPT) 28, Alkaline Phosphatase 91, Total Protein 6.5, Albumin 3.7, Lipase 212H Radiology Date of Exam:05/19/22 CT ABDOMEN/PELVIS W PROCEDURE: CT abdomen and pelvis with contrast. TECHNIQUE: Multiple contiguous axial images were obtained through the abdomen and pelvis after administration of intravenous contrast. Auto Exposure Controls were utilized during the CT exam to meet ALARA standards for radiation dose reduction. All CT scans use one or more of the following dose optimizing techniques: automated exposure control, MA and/or KvP adjustment based on patient size and exam type or iterative reconstruction. INDICATION: Abdominal pain and nausea. COMPARISON: Prior examination from 09/07/2021. FINDINGS: Heart size is normal. The lung bases are clear. The liver is normal in size. Gallbladder is unremarkable. There is no biliary ductal dilatation. Spleen is normal. The pancreas and adrenal glands are unremarkable. There is a 4 mm nonobstructing stone in the left kidney. There is also some cortical scarring in both kidneys. Aorta is nonaneurysmal. There are dilated loops of small bowel compatible with small bowel obstruction. There is no free air. There is no ascites. Bladder is normal. There is no pelvic mass, adenopathy or free fluid. There are degenerative changes at L4-L5. IMPRESSION: 1. Multiple dilated loops of small bowel which appear to be proximal, either jejunal or proximal ileal. These measure up to 4.3 cm in diameter. This is suspect for high-grade small bowel obstruction. 2. Cortical scarring in the kidneys, bilaterally, with a 4 mm left renal stone which is nonobstructing. 3. Focal degenerative disc disease at L4-L5. Dictated by: Dictated on workstation # [id number] Assessment/Plan Assessment/Plan Assessment/Plan 1. Severe Epigastric to RLQ Abd pain - suspected high grade small bowel obs truction 2. H/o gastric adenocarcinoma requiring chemotherapy 3. S/P 1 yr subtotal gastrectomy and gastrojejunostomy Pt is resting comfortably in bed at the moment. CT ABD/PELVIS suggest possible high grade bowel obstruction. Pt also had an elevated lactic acid upon admission of 1.79 and elevated WBC. Pt is not a candidate for NG decompression due to surgical history, consider surgical intervention. Keep NPO. Continue pain medication prn and anti-emetics prn. Consider starting antibiotics such as Zosyn. PRIYANK MORAN DO 05/20/22 1514: History of Present Illness History of Present Illness Time Seen by Provider: 14:21 History of Present Illness Surgery asked to consult regarding partial small bowel obstruction. HPI per ED: Patient is a 42-year-old female who presents to the emergency department with acute onset of diffuse abdominal pain and nausea. Patient has a history of stomach adenocarcinoma that required subtotal gastrectomy and gastrojejunostomy a little over a year ago in [place]. She underwent 2 rounds of chemotherapy treatment. No recent fevers. No diarrhea. No recent abdominal trauma. No medications today for the symptoms. When I saw the pt this afternoon she was not in any pain. I used the twisting frame operator for the history. She stated the pain lasted about 4 hours, has not had any flatus or BM yet. She did say her stomach was distended when she had the pain, but isn't now. Allergies and Home Medications Allergies Coded Allergies: No Known Drug Allergies (Unverified , 12/12/20) Patient Home Medication List Home Medication List Reviewed: Yes Pantoprazole Sodium (Protonix) 40 Mg Tablet.dr 40 MG PO DAILY Prescribed by: LITA AGGARWAL on 12/22/20 1112 Past Mddvudn-Vwzfha-Kkjxka Hx Patient Social History Smoking Status: Never a Smoker Alcohol Use?: No Surgeries History of Surgeries: Yes (Subtotal gastrectomy and gastrojejunostomy 1 year ago in [facility] ) Surgeries: Hysterectomy Respiratory History of Respiratory Disorde: No Cardiovascular History of Cardiac Disorders: No Neurological History of Neurological Disord: Yes Neurological Disorders: Headaches /Migraines Genitourinary History of Genitourinary Disor: No Gastrointestinal History of Gastrointestinal Di: No Endocrine History of Endocrine Disorders: No HEENT HEENT Disorders: Epiglottis Loss of Vision: Denies Hearing Impairment: Denies Cancer History of Cancer: Yes Cancer: Stomach (gastric adenocarcinoma) Psychosocial History of Psychiatric Problem: No Integumentary History of Skin or Integumenta: No Family Medical History Significant Family History: Diabetes (mother) Review of Systems-General Constitutional: No chills, No diaphoresis EENTM: No ear discharge, No ear pain, No mouth swelling, No epistaxis Respiratory: No cough, No dyspnea on exertion Cardiovascular: No chest pain, No palpitations Gastrointestinal: abdominal pain (RLQ, epigastric, and periumbilical); No jaundice, No nausea, No vomiting Genitourinary: No decreased output, No hematuria Musculoskeletal: No back pain, No gout Skin: No change in color, No change in hair/nails Psychiatric/Neurological: Denies Anxiety, Denies Depressed Physical Exam-General Problems Physical Exam General Appearance: WD/WN, no apparent distress Eyes: Bilateral Eye PERRL, Bilateral Eye EOMI HEENT: pharynx normal; No scleral icterus (R), No scleral icterus (L) Neck: non-tender, supple Respiratory: lungs clear, normal breath sounds, no respiratory distress, no accessory muscle use Cardiovascular: regular rate, rhythm, no murmur Gastrointestinal: normal bowel sounds, soft; No distended; tenderness (epigastric, periumbilical, and RLQ with deep palpation) Extremities: no pedal edema, no calf tenderness Neurologic/Psychiatric: alert, oriented x 3 Skin: normal color, warm/dry Lymphatic: no adenopathy (neck, axilla or groin) Assessment/Plan Assessment/Plan Assessment/Plan PSBO with Hx of Gastic CA I reviewed the CT myself and discussed the case with the ED provider and Hospitalist. When I reviewed the CT I could trace this dilated intestine and it is the alimentary limb of her Esther-Janeth. It appears to be dilated right up to the Jejuno-Jejunal anastomosis. She is feeling much better right now and does not appear to be distended at all; in fact her abdomen is very soft. A small bowel follow through would not image this specific area. Because she is better, I think best course of action is to start her on clears and see how she does. I am concerned that ther may be a stricture at the J-J anastomosis, but would try to avoid surgery. I told the pt and her this, they understood. All questions answered to their satisfaction. Supervisory-Addendum Brief Verification & Attestation Participated in pt care: history, MDM, physical Personally performed: exam, history, MDM, supervision of care Care discussed with: Medical Student Procedures: n/a Verification and Attestation of Medical Student E/M Service A medical student performed and documented this service. I then reviewed and verified all information documented by the medical student and made modifications to such information, when appropriate. I personally performed a physical exam, medical decision making and then discussed any differences between the notes and made revisions as necessary to create one note. Priyank Moran , 05/20/22 , 15:22 CRUZ MAGDALENO May 20, 2022 08:57 PRIYANK MORAN DO May 20, 2022 15:14
--- NOTE | 2022-05-20 11:00 | History & Physical-Hospitalist ---
BIANCA DUNLAP 05/20/22 1100: History of Present Illness HPI/Chief Complaint CC: Small Bowel Obstruction HPI: Sarah Cornelius is a 42 yo female who was admitted to med/surg from the ED for a SBO. Patient is Iranian-speaking and daughter serves as bar machine operator multiple spindle in the room. The patient reports she had no pain when she awoke yesterday but around 1500 had sudden onset of diffuse abdominal pain while at [employer]. The patient had accompanying nausea and 11 episodes of nonbloody, bilious vomiting. She was able to pass a bowel movement at 1600 yesterday with no improvement to her pain. The patient also endorses decreased appetite for the past week without abdominal pain. The patient presented to the ED with significant abdominal pain that resolved wi th Dilaudid and Compazine. Labs were abnormal with elevated WBC of 14.6, K of 3.5, Calcium of 8.3; CT Abd/Pelvis revealed dilated loops of small bowel, up to 4.3 cm in diameter, suspicious for high-grade SBO. The patient denies any history of similar symptoms or pain. She also denies any hematochezia, chest pain, shortness of breath, urinary symptoms, cough, headache, or lightheadedness. The patient notes she has a history of stomach adenocarcinoma with subtotal gastrectomy and gastrojejunostomy performed in [place], [place] around 1 year ago, with 2 subsequent rounds of chemotherapy, last round in October 2021. She states her most recent EGD was in March [address] Aggarwal and no abnormalities that the patient can recall. The patient at this time states her pain is 0/10 and she has no other concerns. Source: patient, family, old records Date Seen 05/20/22 Time Seen by a Provider: 10:15 Attending Physician [facility] PCP Admitting Physician: Darlyn Becerril DO Attending Physician: Darlyn Becerril DO Referring Physician PRIYANK MORAN DO Date of Admission May 19, 2022 at 19:15 Home Medications & Allergies Home Medications Reviewed patient Home Medication Reconciliation performed by pharmacy medication reconciliations sugarcane research technician and/or nursing. Patients Allergies have been reviewed. Allergies Allergies Coded Allergies No Known Drug Allergies (Unverified12/12/20) Past Wzobfzc-Edoeds-Ycgzyq Hx Patient Social History Tobacco Use?: No Smoking Status: Never a Smoker Use of E-Cig and/or Vaping dev: No Substance use?: No Alcohol Use?: No Pt feels they are or have been: No Immunizations Up To Date First/Initial COVID19 Vaccinat: NO Second COVID19 Vaccination Sal: NO Tetanus Booster (TDap): Unknown Seasonal Allergies Seasonal Allergies: No Current Status status: No Advance Directives: No Communicates: Verbally Primary Language: Iranian Preferred Spoken Language: Iranian Is interpretation needed?: Yes Past Medical History Surgeries: Abdominal, Bowel Surgery, Gallbladder, Hysterectomy Headaches /Migraines Stomach (gastric adenocarcinoma) Did You Recieve Any Treatments: Yes What Type of Treatment Did You: Chemotherapy, Surgical Intervention Blood Disorders: Yes (ANEMIA) Family Medical History Diabetes (mother) Review of Systems Constitutional: No chills, No dizziness, No fever Respiratory: no symptoms reported; No cough, No hemoptysis Cardiovascular: no symptoms reported; No chest pain Gastrointestinal: abdominal pain, loss of appetite, nausea, vomiting Physical Exam Physical Exam Vital Signs Vital Signs - First Documented 05/19/22 05/19/22 05/19/22 17:48 20:17 21:09 Temp 36.7 Pulse 62 Resp 18 B/P (MAP) 114/73 (87) Pulse Ox 100 O2 Delivery Room Air FiO2 21 Capillary Refill : Less Than 3 Seconds Height, Weight, BMI Height: '" Weight: lbs. oz. kg; 22.14 BMI Method: General Appearance: No Apparent Distress, WD/WN Respiratory: Chest Non Tender, Lungs Clear, Normal Breath Sounds, No Accessory Muscle Use, No Respiratory Distress Cardiovascular: Regular Rate, Rhythm, No Edema, No Gallop, No Murmur, Normal Peripheral Pulses Gastrointestinal: Normal Bowel Sounds, Soft, Tenderness (to the epigastrium, periumbilicus, RUQ, RLQ) Neurologic/Psychiatric: Alert, Oriented x3, Normal Mood/Affect Results Results/Procedures Labs Laboratory Tests 05/19/22 17:59 05/20/22 05:15 Patient resulted labs reviewed. Imaging: Reviewed Imaging Report Imaging Date of Exam:05/19/22 CT ABDOMEN/PELVIS W IMPRESSION: 1. Multiple dilated loops of small bowel which appear to be proximal, either jejunal or proximal ileal. These measure up to 4.3 cm in diameter. This is suspect for high-grade small bowel obstruction. 2. Cortical scarring in the kidneys, bilaterally, with a 4 mm left renal stone which is nonobstructing. 3. Focal degenerative disc disease at L4-L5. Assessment/Plan Admission Diagnosis 1. RLQ, RUQ, epigastric, periumbilical bdominal Pain: Likely SBO per CT. Surgery consulted. Continue pushing fluids. Analgesia initiated. Stool softener regimen initiated. 2. Nausea and vomiting: Antiemetic regimen initiated. 3. Hypokalemia: Oral potassium supplementation initiated. Potassium WNL 05/20. Recheck CMP in 24 hours. 4. Elevated lipase: Improvement from 621 to 212 on 05/20. Continue hydrating patient. Recheck CMP in 24 hours. 5. H/o gastric adenocarcinoma requiring chemotherapy s/p subtotal gastrectomy and gastrojejunostomy 1 year ago Admission Status: Inpatient Order (span 2 midnights) Reason for Inpatient Admission: SBO DARLYN BECERRIL DO 05/21/22 0454: Physical Exam Physical Exam General Appearance: No Apparent Distress Respiratory: Lungs Clear, Normal Breath Sounds Cardiovascular: Regular Rate, Rhythm Assessment/Plan Admission Diagnosis SBO management Ambulate Appreciate Dr. Aggarwal Admission Status: Observation Supervisory-Addendum Brief Verification & Attestation Participated in pt care: history, MDM, physical Personally performed: exam, history, MDM, supervision of care Care discussed with: Medical Student Procedures: n/a Results interpretation: Verified all documentation Verification and Attestation of Medical Student E/M Service A medical student performed and documented this service in my presence. I reviewed and verified all information documented by the medical student and made modifications to such information, when appropriate. I personally performed the physical exam and medical decision making. Darlyn Becerril May 21, 2022,04:53 BIANCA DUNLAP May 20, 2022 11:00 DARLYN BECERRIL DO May 21, 2022 04:54
[2022-05-20] MEDS ORDERED: PANT40TA52 PO (15:57)
[2022-05-20] MEDS ORDERED: MULT-1136 PO (15:57)
--- NOTE | 2022-05-20 16:27 | CONSULTATION REPORT ---
HISTORY OF PRESENT ILLNESS: The patient is a 42-year-old female known to us. She was admitted yesterday for acute onset of diffuse abdominal pain and this was eventually followed by 11 episodes of nausea and vomiting, which was bilious in nature. After this episode that she had no appetite. She was seen in the emergency department and given Dilaudid and Compazine, which did help with her nausea. She does not report any hematemesis, no coffee-ground emesis. She states that before this revealed dilated loops of proximal small bowel consistent with a small-bowel obstruction. The patient was found to have H. pylori as well as a proximal gastric cancer approximately one year ago and underwent a laparoscopic subtotal gastrectomy and likely Esther-en-Y gastrojejunostomy performed in [place], [place] and this was also followed by 2 rounds of chemotherapy with the last round done in 10/2021. She underwent a followup EGD on 03/30, which showed patent Esther limb as well as no marginal ulcerations. There were no other recurrent lesions as well. PAST MEDICAL HISTORY: Gastric adenocarcinoma, migraine headaches. PAST SURGICAL HISTORY: Laparoscopic subtotal gastrectomy, Esther-en-Y gastrojejunostomy, laparoscopic cholecystectomy. ALLERGIES: NO KNOWN DRUG ALLERGIES. MEDICATIONS: Protonix 40 mg daily. SOCIAL HISTORY: Negative smoking, negative alcohol. FAMILY HISTORY: Noncontributory. REVIEW OF SYSTEMS: A well-nourished female, currently in no acute distress. She does have waves of nausea; however, no vomiting and also is still anorexic. No hematemesis, no coffee-ground emesis. She states that before this episode, she was having normal bowel movements, no red blood per rectum, no dark tarry stools. No fever or chills. No recent inadvertent weight loss. All of the review of systems negative. PHYSICAL EXAMINATION: VITAL SIGNS: Temperature 36.8, blood pressure 106/71, pulse 69, respirations 18, pulse ox 98% on room air. CHEST: Clear, good breath sounds bilaterally. HEART: Regular, no murmurs. EXTREMITIES: No lower extremity edema. Negative Homans sign. HEENT: No scleral icterus. No cervical lymphadenopathy. ABDOMEN: Soft, slightly distended with mild discomfort, more in the upper abdominal quadrants. There are no hernias. No peritoneal signs. SKIN: Warm and dry. LABORATORY DATA: WBC 11.3, hemoglobin 11.5, hematocrit 35, platelets 222, BUN 8, creatinine 0.66. Initial admission lipase was 621, today it is 212. Liver function enzymes normal. ASSESSMENT AND PLAN: A 42-year-old female with a high-grade bowel obstruction with history of gastric adenocarcinoma, status post subtotal gastrectomy with a Esther-en-Y gastrojejunostomy and 2 rounds of chemotherapy. She did undergo an EGD recently, which did not show any obstructive phenomenon. We feel that there is a potential for an intussusception, adhesion tissue, jejunojejunal stricture as well as the possibility of an internal hernia. There is also a high prevalence of internal herniation in Urias's defect after Esther-en-Y gastrojejunostomy as well. We will treat her conservatively initially with IV fluids, correction of electrolytes, time and ambulation. If she does not resolve, then she would likely need a diagnostic laparoscopy and possible reduction of hernia and repair of hernia. Job ID: [id number] DocumentID: [id number] Dictated Date: 05/20/2022 16:00:21 Perishable Fruit Inspector Date: 05/20/2022 16:25:00 Dictated By: LITA HARRIS MD [facility]
[2022-05-20] MEDS ORDERED: ENOXAPARIN 40 MG/0.4 ML (LOVENOX) SYR SC SCH (21:00)
[2022-05-21] MEDS: NS IV 1000 ML 1,000 ML IV SCH (03:49)
[2022-05-21 03:50] VITALS: BP 105/62
[2022-05-21 06:02] LABS: BASOPHILS % (AUTO) 1 % (0-10); EOSINOPHILS # (AUTO) 0.1 10^3/uL (0.0-0.3); EOSINOPHILS % (AUTO) 2 % (0-10); HEMATOCRIT 32 % (35-52); HEMOGLOBIN 10.3 g/dL (11.5-16.0); LYMPHOCYTES # (AUTO) 1.7 10^3/uL (1.0-4.0); LYMPHOCYTES % (AUTO) 32 % (12-44); MEAN CORPUSCULAR HEMOGLOBIN 27 pg (25-34); MEAN CORPUSCULAR HGB CONC 32 g/dL (32-36); MEAN CORPUSCULAR VOLUME 84 fL (80-99); MEAN PLATELET VOLUME 11.4 fL (9.0-12.2); MONOCYTES # (AUTO) 0.5 10^3/uL (0.0-1.0); MONOCYTES % (AUTO) 9 % (0-12); NEUTROPHILS % (AUTO) 56 % (42-75); PLATELET COUNT 163 10^3/uL (130-400); WHITE BLOOD COUNT 5.2 10^3/uL (4.3-11.0)
[2022-05-21 06:38] LABS: ALBUMIN 3.2 GM/DL (3.2-4.5); BILIRUBIN,TOTAL 0.9 MG/DL (0.1-1.0); CREATININE SERUM 0.69 MG/DL (0.60-1.30); POTASSIUM 3.6 MMOL/L (3.6-5.0); TOTAL PROTEIN 5.8 GM/DL (6.4-8.2)
[2022-05-21 07:22] VITALS: BP 123/87
--- NOTE | 2022-05-21 10:39 | Discharge Summary ---
Discharge Summary Hospital Course Was the Problem List Reviewed?: Yes Problems/Dx: (1) Small bowel obstruction Status: Acute (2) History of gastric cancer Hospital Course Date of Admission: May 19, 2022 at 19:15 Admission Diagnosis : [facility] Date of Discharge: 05/21/22 Discharge Diagnosis: [ ] Hospital Course: Sarah Cornelius is a 42 yo female admitted from the ED with diagnosis of small bowel obstruction. The patient had acute onset of abdominal pain two days ago, prompting her arrival the ED, where she was diagnosed with SBO on CT Abd/Pelvis. She had accompanying symptoms of nausea and vomiting, with 11 episodes of vomiting prior to arrival 2 days ago. The patient was admitted with stable vital signs for continued hydration and cathartics. On evaluation today, the patient reports her abdominal pain is completely resolved at rest, and she has been eating well. The patient successfully stooled today around 0915 and indicates she feels ready to go home; she has no concerns at this time. Vital signs are stable at time of discharge. Labs are unremarkable except for mild anemia, slight chloride elevation, and slight Ca and Total Protein decrease. Patient was treated with Lovenox here for DVT prophylaxis. Exam revealed mild periumbilical, RLQ, LLQ abdominal tenderness with normal bowel sounds; exam was otherwise unremarkable. Labs and Pending Lab Test: Laboratory Tests 05/21/22 05:35: White Blood Count 5.2, Red Blood Count 3.77L, Hemoglobin 10.3L, Hematocrit 32L, Mean Corpuscular Volume 84, Mean Corpuscular Hemoglobin 27, Mean Corpuscular Hemoglobin Concent 32, Red Cell Distribution Width 13.8, Platelet Count 163, Mean Platelet Volume 11.4, Immature Granulocyte % (Auto) 0, Neutrophils (%) (Auto) 56, Lymphocytes (%) (Auto) 32, Monocytes (%) (Auto) 9, Eosinophils (%) (Auto) 2, Basophils (%) (Auto) 1, Neutrophils # (Auto) 3.0, Lymphocytes # (Auto) 1.7, Monocytes # (Auto) 0.5, Eosinophils # (Auto) 0.1, Basophils # (Auto) 0.0, Immature Granulocyte # (Auto) 0.0, Sodium Level 137, Potassium Level 3.6, Chloride Level 110H, Carbon Dioxide Level 21, Anion Gap 6, Blood Urea Nitrogen 12, Creatinine 0.69, Estimat Glomerular Filtration Rate 110, BUN/Creatinine Ratio 17, Glucose Level 80, Calcium Level 8.0L, Corrected Calcium 8.6, Total Bilirubin 0.9, Aspartate Amino Transf (AST/SGOT) 17, Alanine Aminotransferase (ALT/SGPT) 22, Alkaline Phosphatase 79, Total Protein 5.8L, Albumin 3.2, Lipase 32 Home Meds Active Reported Multivitamin 1 Each Tablet 1 Each PO DAILY Pantoprazole Sodium 40 Mg Tablet.dr 40 Mg PO DAILY Assessment/Pt Instructions PCP in 1 week Discharge Planning: <30 minutes discharge planning Discharge Instructions Discharge Diet: No Restrictions, Low Fat/Low Cholesterol Discharge Physical Examination Vital Signs Vital Signs Date Time Temp Pulse Resp B/P (MAP) Pulse Ox O2 Delivery O2 Flow Rate FiO2 05/21/22 07:22 37.0 90 18 123/87 (99) 92 Nasal Cannula 3.00 05/19/22 21:09 21 General Appearance: No Apparent Distress, WD/WN Allergies: Coded Allergies: No Known Drug Allergies (Unverified , 12/12/20) Discharge Summary Date of Admission May 19, 2022 at 19:15 Date of Discharge Discharge Date: May 21, 2022 Admission Diagnosis SBO management Ambulate Appreciate CATERINA Gaviria DO May 21, 2022 10:39
--- NOTE | 2022-05-21 12:14 | Progress Note ---
BIANCA DUNLAP 05/21/22 1214: Progress Note Sarah Cornelius is a 42 yo female admitted from the ED with diagnosis of small bowel obstruction. The patient had acute onset of abdominal pain two days ago, prompting her arrival the ED, where she was diagnosed with SBO on CT Abd/Pelvis. She had accompanying symptoms of nausea and vomiting, with 11 e pisodes of vomiting prior to arrival 2 days ago. The patient was admitted with stable vital signs for continued hydration and cathartics. On evaluation today, the patient reports her abdominal pain is completely resolved at rest, and she has been eating well. The patient successfully stooled today around 0915 and indicates she feels ready to go home; she has no concerns at this time. Vital signs are stable at time of discharge. Labs are unremarkable except for mild anemia, slight chloride elevation, and slight Ca and Total Protein decrease. Patient was treated with Lovenox here for DVT prophylaxis. Exam revealed mild periumbilical, RLQ, LLQ abdominal tenderness with normal bowel sounds; exam was otherwise unremarkable. DARLYN BECERRIL DO 05/21/222035: Supervisory-Addendum Brief Verification & Attestation Participated in pt care: history, MDM, physical Personally performed: exam, history, MDM, supervision of care Care discussed with: Medical Student Procedures: n/a Results interpretation: Verified all documentation Verification and Attestation of Medical Student E/M Service A medical student performed and documented this service in my presence. I reviewed and verified all information documented by the medical student and made modifications to such information, when appropriate. I personally performed the physical exam and medical decision making. Darlyn Becerril, May 21, 2022,20:36 BIANCA DUNLAP May 21, 2022 12:14 DARLYN BECERRIL DO May 21, 2022 20:36
== END 2022-05-21 11:04 | disposition home or self-care (01) ==
LOC: EDUNIT# 17:29 → ER 17:30 → 4TH 19:15 → UNDOADMOB 19:15 → 4TH 20:17 → UNDODISOB 05-21 11:04
PROVIDERS: ADMIT Internal Medicine; ATTEND Internal Medicine
DX: K56.609 Unspecified intestinal obstruction, unspecified as to partial versus complete obstruction (principal); D64.9 Anemia, unspecified; E87.6 Hypokalemia; Z85.028 Personal history of other malignant neoplasm of stomach; Z93.4 Other artificial openings of gastrointestinal tract status; Z87.11 Personal history of peptic ulcer disease
CPT/HCPCS: 36415; 74177; 80053; 83605; 83690; 85007; 85025; 85027; 96372; 96375; G0378

== ENCOUNTER 2022-05-23 11:06 | Outpatient (RCR) | payer OTHER ==
[~2022-05-23 11:06] MED LIST changes: +MULT-1136 PO; +PANT40TA52 PO
== END 2022-06-08 | disposition home or self-care (01) ==
LOC: ONC 11:06
PROVIDERS: ATTEND Internal Medicine Hematology & Oncology
DX: Z45.2 Encounter for adjustment and management of vascular access device (principal); C16.9 Malignant neoplasm of stomach, unspecified; D50.0 Iron deficiency anemia secondary to blood loss (chronic); K22.70 Barrett's esophagus without dysplasia
CPT/HCPCS: 96523

== ENCOUNTER 2022-10-17 11:00 | Outpatient (RCR) | payer OTHER ==
[2022-10-11 11:07] LABS: BASOPHILS % (AUTO) 1 % (0-10); EOSINOPHILS # (AUTO) 0.1 10^3/uL (0.0-0.3); EOSINOPHILS % (AUTO) 2 % (0-10); HEMATOCRIT 35 % (35-52); HEMOGLOBIN 11.3 g/dL (11.5-16.0); LYMPHOCYTES # (AUTO) 1.7 10^3/uL (1.0-4.0); LYMPHOCYTES % (AUTO) 31 % (12-44); MEAN CORPUSCULAR HEMOGLOBIN 27 pg (25-34); MEAN CORPUSCULAR HGB CONC 33 g/dL (32-36); MEAN CORPUSCULAR VOLUME 82 fL (80-99); MEAN PLATELET VOLUME 10.8 fL (9.0-12.2); MONOCYTES # (AUTO) 0.5 10^3/uL (0.0-1.0); MONOCYTES % (AUTO) 9 % (0-12); NEUTROPHILS # (AUTO) 3.2 10^3/uL (1.8-7.8); NEUTROPHILS % (AUTO) 58 % (42-75); PLATELET COUNT 232 10^3/uL (130-400); WHITE BLOOD COUNT 5.5 10^3/uL (4.3-11.0)
[2022-10-11 11:30] LABS: ALBUMIN 4.1 GM/DL (3.2-4.5); BILIRUBIN,TOTAL 0.8 MG/DL (0.1-1.0); CALCIUM 8.5 MG/DL (8.5-10.1); CREATININE SERUM 0.69 MG/DL (0.60-1.30); POTASSIUM 3.9 MMOL/L (3.6-5.0); TOTAL PROTEIN 7.7 GM/DL (6.4-8.2)
== END 2022-11-06 | disposition home or self-care (01) ==
LOC: ONC 11:00
PROVIDERS: ATTEND Internal Medicine Hematology & Oncology
DX: C16.9 Malignant neoplasm of stomach, unspecified (principal); D50.0 Iron deficiency anemia secondary to blood loss (chronic); K22.70 Barrett's esophagus without dysplasia
CPT/HCPCS: 36415; 36591; 80053; 82728; 83540; 83550; 85025

== ENCOUNTER 2023-01-09 11:38 | Outpatient (RCR) | payer OTHER | END 2023-02-06 | disposition home or self-care (01) | LOC: ONC 11:38 | PROVIDERS: ATTEND Internal Medicine Hematology & Oncology | DX: Z45.2 Encounter for adjustment and management of vascular access device (principal); C16.9 Malignant neoplasm of stomach, unspecified; D50.0 Iron deficiency anemia secondary to blood loss (chronic); K22.70 Barrett's esophagus without dysplasia | CPT/HCPCS: 96523 ==

== ENCOUNTER 2023-03-26 05:49 | Outpatient (CLI) | payer SELFPAY ==
[~2023-03-26] VITALS: Ht 167.6 cm; Wt 60.1 kg
== END 2023-03-26 11:12 | disposition home or self-care (01) ==
LOC: PREOP 05:49
PROVIDERS: ATTEND Surgery
DX: Z01.818 Encounter for other preprocedural examination (principal)

== ENCOUNTER 2023-04-02 12:22 | Day surgery (SDC) | payer SELFPAY ==
[~2023-04-02] VITALS: Ht 168 cm; Wt 60.1 kg
[2023-04-02] MEDS ORDERED: LACTATED RINGERS 1,000 ML 1,000 ML IV STA (12:24)
[2023-04-02] MEDS ORDERED: HURRICAINE EXT TUBE (BENZOCAINE) XX PRN (12:30)
[2023-04-02] MEDS ORDERED: LIDOCAINE JELLY 2% 6 ML SYRINGE MM PRN (12:30)
[2023-04-02 12:45] VITALS: BP 118/76
--- NOTE | 2023-04-02 12:49 | Progress Note-Pre Operative ---
Pre-Operative Progress Note Date of Available H&P: Apr 02, 2023 Date H&P Reviewed: Apr 02, 2023 Time H&P Reviewed: 12:30 History & Physical: No changes noted Pre-Operative Diagnosis: hx gastric adenocarcinoma LITA HARRIS MD Apr 02, 2023 12:49
--- NOTE | 2023-04-02 12:50 | Discharge Inst-Surgical ---
D/C Lap Instructions-KIMBERLY Follow Up Activity as tolerated High Fiber Diet 25g or more per day Avoid Alcohol, Caffeine, Spicy [place] and Acid foods. Drink 64 fluid oz or more of fluids per day. Symptoms to Report: Fever over 101 degree F, Nausea/Vomiting If any problems/questions: Contact your physician or go to Emergency Room LITA HARRIS MD Apr 02, 2023 12:50
[2023-04-02] MEDS ORDERED: ONDANSETRON INJECTION 4 MG/2 ML (SDV) IVP PRN (13:00)
[2023-04-02] MEDS ORDERED: ONDANSETRON 4 MG ORAL DISSOLVE TABLET PO PRN (13:00)
[2023-04-02] MEDS ORDERED: proPOfol INJECTION 200 MG/20 ML VIAL IV ONE (13:39)
[2023-04-02] MEDS ORDERED: LIDOCAINE JELLY 2% 6 ML SYRINGE ONE (13:49)
[2023-04-02 14:30] VITALS: BP 121/65
[2023-04-02 14:35] VITALS: BP 121/65
[2023-04-02 14:55] VITALS: BP 121/65
--- NOTE | 2023-04-02 17:34 | Anesthesia-General Post-Op ---
MAC Patient Condition Mental Status/LOC: Same as Preop Cardiovascular: Satisfactory Nausea/Vomiting: Absent Respiratory: Satisfactory Pain: Controlled Complications: Absent Post Op Complications Complications None Follow Up Care/Instructions Patient Instructions None needed. Anesthesiology Discharge Order Discharge Order Patient is doing well, no complaints, stable vital signs, no apparent adverse anesthesia problems. No complications reported per nursing. THOMAS LUDWIG CRNA Apr 02, 2023 17:34
--- NOTE | 2023-04-02 20:48 | OPERATIVE REPORT ---
DATE OF SERVICE: 04/02/2023 ATTENDING CLIENT PROJECT COORDINATOR: [facility]. PREOPERATIVE DIAGNOSES: History of gastric adenocarcinoma. POSTOPERATIVE DIAGNOSES: Reflux esophagitis, Caroline grade B, small to moderate size hiatal hernia approximately 2.5 cm in size normal gastrojejunal anastomosis. Normal Esther limb. PROCEDURE: Colonoscopy, EGD with biopsy. SURGEON: Lita Harris MD ANESTHESIA: Monitored anesthesia care. ESTIMATED BLOOD LOSS: Minimal. FINDINGS: History of gastric adenocarcinoma. DISPOSITION: The patient tolerated the procedure well. INDICATIONS: The patient is a 42-year-old female from [facility] and is [place] speaking, however, does have family members who do who are able to interpret. She was initially found to be anemic in her home country, but states that she was otherwise she otherwise healthy and a healthy and with exercise regularly. She does report noticing dark colored stools on an intermittent basis and was found to have a hemoglobin of 6.9 and hematocrit of 22 on 12/22/2020. She underwent an EGD and colonoscopy, was found to have reflux esophagitis, Caroline grade B, moderate severity gastritis as well as a gastric ulcer along the body of the greater curvature of the stomach with an overlying fibrin clot and no active bleeding. Biopsies were positive for H. pylori and the ulcer. Biopsy did show adenocarcinoma that was poorly differentiated. She underwent further workup including a PET scan and was found to only have the small area of the stomach, appearing to light up more consistent with a stage I tumor. She was eventually referred to [facility] in [place] and underwent a subtotal gastrectomy with a Esther-en-Y gastrojejunal reconstruction. Since that time, we have been doing follow up upper endoscopies. We had done 1 last on 03/13/2002. Biopsies were negative for carcinoma as well as H. pylori. She states that she is otherwise doing well, does not report any inadvertent weight loss and is tolerating a regular diet and no episodes of nausea, vomiting nor any hematemesis, no coffee-ground emesis. DESCRIPTION OF PROCEDURE: The patient was brought to the endoscopy suite and laid in the left lateral decubitus position. After adequate IV pain and sedative medications and monitored anesthesia care, the mouthpiece was applied. The endoscope was placed in the mouth, visualized the pharynx and hypopharyngeal region. Vocal cords, epiglottis and vallecula identified and appeared to be normal. The endoscope was then gently intubated into the esophageal opening and esophagus insufflated. The endoscope was then advanced through the first, second, third portions of esophagus at the level of the GE junction, reflux esophagitis, Caroline grade B identified. No ulcers or strictures identified in this region. A biopsy was taken with forceps with visualization of good hemostasis. The endoscope was then advanced into the stomach into the gastric pouch and endoscope retroflexed visualizing a small to moderate size hiatal hernia approximately 2.5 cm in size. The gastric pouch appeared normal as did the gastrojejunal anastomosis with no recurrent tumors. Biopsies were taken of epigastrojejunal anastomosis with forceps with visualization of good hemostasis. The endoscope was then advanced through the Esther limb with no ulcerations or any polyps identified. The endoscope was then slowly withdrawn while taking a second look and suctioning of residual air with no additional findings. The patient tolerated the procedure well. 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 This is her second consecutive EGD, which has been normal and we will await recommendations for followup egds based on drafter plumbing. Job ID: [id number] DocumentID: [id number] Dictated Date: 04/02/2023 14:35:22 Photographic Equipment Assembler Date: 04/02/2023 20:46:00 Dictated By: LITA HARRIS MD
== END 2023-04-02 15:00 | disposition home or self-care (01) ==
LOC: ENDO 12:22
PROVIDERS: ATTEND Surgery
DX: K21.00 Gastro-esophageal reflux disease with esophagitis, without bleeding (principal); K44.9 Diaphragmatic hernia without obstruction or gangrene; Z80.0 Family history of malignant neoplasm of digestive organs
CPT/HCPCS: 84703

== ENCOUNTER → 2023-04-08 | Outpatient (RCR) | payer SELFPAY ==
[2023-04-08 14:22] LABS: BASOPHILS # (AUTO) 0.1 10^3/uL (0.0-0.1); BASOPHILS % (AUTO) 1 % (0-10); EOSINOPHILS # (AUTO) 0.2 10^3/uL (0.0-0.3); EOSINOPHILS % (AUTO) 3 % (0-10); HEMATOCRIT 32 % (35-52); HEMOGLOBIN 9.7 g/dL (11.5-16.0); LYMPHOCYTES # (AUTO) 1.5 10^3/uL (1.0-4.0); LYMPHOCYTES % (AUTO) 30 % (12-44); MEAN CORPUSCULAR HEMOGLOBIN 24 pg (25-34); MEAN CORPUSCULAR HGB CONC 30 g/dL (32-36); MEAN CORPUSCULAR VOLUME 79 fL (80-99); MEAN PLATELET VOLUME 10.7 fL (9.0-12.2); MONOCYTES # (AUTO) 0.4 10^3/uL (0.0-1.0); MONOCYTES % (AUTO) 8 % (0-12); NEUTROPHILS # (AUTO) 2.9 10^3/uL (1.8-7.8); NEUTROPHILS % (AUTO) 58 % (42-75); PLATELET COUNT 277 10^3/uL (130-400); WHITE BLOOD COUNT 5.1 10^3/uL (4.3-11.0)
[2023-04-08 14:42] LABS: BILIRUBIN,TOTAL 0.6 MG/DL (0.1-1.0); CALCIUM 8.9 MG/DL (8.5-10.1); CREATININE SERUM 0.82 MG/DL (0.60-1.30); TOTAL PROTEIN 7.2 GM/DL (6.4-8.2)
== END ==
LOC: ONC 13:43
PROVIDERS: ATTEND Internal Medicine Hematology & Oncology
DX: Z45.2 Encounter for adjustment and management of vascular access device (principal); C16.9 Malignant neoplasm of stomach, unspecified; D50.9 Iron deficiency anemia, unspecified
CPT/HCPCS: 36591; 80053; 82728; 83540; 83550; 85025

== ENCOUNTER 2023-04-28 12:48 | Outpatient (RCR) | payer SELFPAY ==
[2023-04-21] MEDS: FERRIC CARBOXYMALTOSE INJ 750 MG in NS (IVPB) 250 ML 250 ML IV SCH (14:30)
[2023-04-21 14:31] VITALS: BP 107/69
[~2023-04-28] VITALS: Ht 167.6 cm; Wt 59.9 kg
[2023-04-28 13:05] VITALS: BP 107/69
[2023-04-28] MEDS: FERRIC CARBOXYMALTOSE INJ 750 MG in NS (IVPB) 250 ML 250 ML IV SCH (13:19)
== END 2023-05-08 | disposition home or self-care (01) ==
LOC: ONC 12:48
PROVIDERS: ATTEND Internal Medicine Hematology & Oncology
DX: C16.9 Malignant neoplasm of stomach, unspecified (principal); D50.9 Iron deficiency anemia, unspecified; K21.00 Gastro-esophageal reflux disease with esophagitis, without bleeding; K22.70 Barrett's esophagus without dysplasia; Z45.2 Encounter for adjustment and management of vascular access device
CPT/HCPCS: 96365; 96523